=== PATIENT | male | born 1950 | race Caucasian/White ===

== ENCOUNTER → 2021-06-07 15:12 | Outpatient (CLI) | payer MEDICARE, SELFPAY ==
[2021-06-07 14:40] LABS: Chloride 102 mmol/L (98-107); Potassium 4.8 mmoL/L (3.5-5.1); Sodium 132 mmol/L (136-145)
[2021-06-07 14:42] LABS: Alanine Aminotransferase 67 U/L (12-78); Aspartate Amino Transferase 60 U/L (17-59); Blood Urea Nitrogen 16 mg/dl (9-20); Estimated Glomerular Filt Rate 74 ml/min (>60); GFR (African American) 89 ML/MIN (>60)
[2021-06-07 14:43] LABS: Albumin Level 4.6 g/dl (3.5-5.0); Albumin/Globulin Ratio 1.9 (1.1-1.8); Alkaline Phosphatase 58 U/L (38-126); Anion Gap 13.8 mEq/L (5-15); Bilirubin,Total 1.9 mg/dl (0.2-1.3); Carbon Dioxide 21 mmol/L (22.0-30.0); Chol/HDL Ratio 5.8 (1-3.5); Cholesterol 185 mg/dl (140-200); Globulin 2.4 g/dL (1.3-3.2); Glucose 187 mg/dl (74-100); HDL Cholesterol 32 mg/dl (40-60)
[2021-06-07 14:47] LABS: Basophils # 0.1 K/mm3 (0-0.2); Basophils % 0.7 % (0.1-2.0); Eosinophils # 0.3 K/mm3 (0.0-0.4); Eosinophils % 4.7 % (0.1-12.0); Hematocrit 47.1 % (42.0-52.0); Hemoglobin 15.6 g/dL (14.1-18.0); Lymphocytes # 1.1 K/mm3 (0.7-4.5); Lymphocytes % 16.4 % (10-50); Mean Corpuscular HGB Conc 33.1 g/dL (31.8-35.4); Mean Corpuscular Hemoglobin 33.1 pg (27.0-31.2); Mean Corpuscular Volume 99.9 fl (80-94); Monocytes # 0.4 K/mm3 (0.1-1.0); Neutrophils # 4.8 K/mm3 (1.8-7.8); Neutrophils % 72.2 % (37.0-80.0); Platelet Count 245 K/mm3 (142-424); Red Blood Count 4.72 M/mm3 (4.60-6.20); Red Cell Distribution Width 13.6 % (11.5-17.5); White Blood Count 6.6 K/mm3 (4.8-10.8)
[2021-06-07 14:53] LABS: Triglycerides 462 mg/dl (30-150)
[2021-06-07 14:54] LABS: Direct LDL Cholesterol 68.95 mg/dL (100-129)
[2021-06-07 15:24] LABS: Thyroid Stimulating Hormone 1.92 uIU/mL (0.465-4.68)
[2021-06-07 16:45] LABS: Prostate Specific Ag Screen 0.3 ng/ml (0.0-4.0)
== END ==
PROVIDERS: Visit Provider Family Medicine
DX: E66.9 Obesity, unspecified (principal); Z00.00 Encounter for general adult medical examination without abnormal findings; Z12.5 Encounter for screening for malignant neoplasm of prostate; E03.9 Hypothyroidism, unspecified; Z68.31 Body mass index [BMI] 31.0-31.9, adult
CPT/HCPCS: 80053; 80061; 84443; 85025; G0103

== ENCOUNTER 2022-03-26 14:41 | Emergency (ER) | payer MEDICARE, SELFPAY ==
[2022-03-26 15:25] VITALS: BP 112/68; PULSE 75; RESP 18; TEMP 36.7; O2SAT 95; BMI 29.5
--- NOTE | 2022-03-26 15:50 | EXP.UTC ---
Discharge Plan Disposition Patient Disposition: Home, Self-Care Condition: Good Prescriptions Prescriptions: New benzonatate 100 mg capsule 100 mg PO TID PRN (Reason: cough) Qty: 30 0RF azithromycin [Zithromax Z-Ben] 250 mg tablet See Rx Instructions .ROUTE .COMPLEX 5 Days Qty: 6 0RF Rx Instructions: For 250 mg dose pack: take 500 mg today (day 1), then 250 mg for 4 days (days 2-5) No Action atorvastatin 40 mg tablet 40 mg PO DAILY Qty: 90 3RF metoprolol succinate 200 mg tablet extended release 24 hr See Rx Instructions .ROUTE .COMPLEX Qty: 90 3RF Dose Instruction: Take 1 tablet by mouth once daily Rx Instructions: Take 1 tablet by mouth once daily patient needs an appt before anymore refills warfarin 7.5 mg tablet See Rx Instructions .ROUTE .COMPLEX Qty: 90 3RF Dose Instruction: Take 1 tablet by mouth once daily Rx Instructions: Take 1 tablet by mouth once daily clobetasol 0.05 % cream 1 applic TOPICAL BID 14 Days Qty: 60 6RF cyclosporine [Restasis] 0.05 % dropperette OPHTHALMIC Label Comments: INSTILL 1 DROP INTO EACH EYE TWICE DAILY trazodone 100 mg tablet 100 mg PO DAILY Qty: 90 3RF levothyroxine 75 mcg capsule 75 mcg PO DAILY Qty: 90 3RF aspirin 81 mg tablet,delayed release (DR/EC) See Rx Instructions .ROUTE .COMPLEX Qty: 30 0RF Dose Instruction: Take 1 tablet by mouth once daily Rx Instructions: Take 1 tablet by mouth once daily patient needs an appt before anymore refills Referrals Follow up/Referrals: Jc Maxwell MD [Primary Care Provider] - See instructions Activity Restrictions/Add. Instructions Additional Instructions/Restrictions: *Monitor Temp, Over the counter Motrin or Tylenol as directed/as needed Tylenol every 4 hours and Motrin every 6 hours (as long as your family doctor has told you that you can take it) for fever or pain. and straight to ER if unable to lower temp less than 101.0 after medication given *Warm salt water gargles may help to soothe the throat *Throat Lozenges? *Warm fluids like tea with honey may help to soothe the throat? *Sleep elevated *Humidifier/Vaporizer Make sure to notify the War[facility]in Clinic in [place] that you are on antibiotics and have your levels checked to adjust your Warfarin Follow up IMMEDIATELY for new or worsening symptoms or no Noticeable improvement over the next 48-72 hours. 911 for difficulty breathing or swallowing Clinical Impressions Clinical Impression: Bronchitis Instructions Patient Instructions: Acute Bronchitis Discharge ED Provider[place] Tanvi [place] [facility] [facility] [place] General Stated complaint: Bodyaches, persistant cough Mode of Arrival: Ambulatory Source of Information: Patient Limitations: No Limitations Time Seen by Provider: 03/26/22 15:50 Description of Symptoms (Recalled from Triage Doc. by RN): PATIENT C/O PERSISTANT COUGH X 4 DAYS HEENT Symptoms (Recalled from RN notes): No Resp Symptoms (Recalled from RN notes): Yes Skin Symptoms (Recalled from RN notes): No MS Symptoms (Recalled from RN notes): No Functional Status (Recalled from RN notes): WNL History of Present Illness Provider Complaint: Patient states that he has had a cough for about 4 days States that he has been having some nasal drainage and low grade fever States that he isnt coughing anything up States that he has his ribs sore from where he has been coughing and cough worse when he lays down States that he has coughed so much he hurts on his right ribs at times when he coughs hard Related Data Home Medications Medication Instructions Recorded Confirmed cyclosporine 0.05 % eye drops in a ea ophthalmic (eye) 07/25/21 07/25/21 dropperette (Restasis) Previous Rx's Medication Instructions Recorded aspirin 81 mg tablet,delayed See Rx Instructions .Route 05/14/21 release .COMPLEX #30 tabs atorvastatin 40 mg table
[2022-03-26 15:59] LABS: UTC Influenza A Antigen Negative (Negative); UTC Influenza B Antigen Negative (Negative)
[2022-03-26 16:20] VITALS: BP 112/68; PULSE 75; RESP 18; TEMP 36.7; O2SAT 95
== END 2022-03-26 16:23 | disposition home or self-care (01) ==
PROVIDERS: Emergency Provider Nurse Practitioner; PCP Family Medicine
DX: J40 Bronchitis, not specified as acute or chronic (principal)
CPT/HCPCS: 87804; 99212; G0463

== ENCOUNTER → 2022-10-29 11:02 | Outpatient (CLI) | payer MEDICARE, SELFPAY ==
[2022-10-29 11:33] LABS: Basophils % 0.6 % (0.1-2.0); Eosinophils # 0.4 K/mm3 (0.0-0.4); Eosinophils % 5.1 % (0.1-12.0); Hematocrit 47.9 % (42.0-52.0); Hemoglobin 15.2 g/dL (14.1-18.0); Lymphocytes # 1.4 K/mm3 (0.7-4.5); Lymphocytes % 20.1 % (10-50); Mean Corpuscular HGB Conc 31.7 g/dL (31.8-35.4); Mean Corpuscular Hemoglobin 31.3 pg (27.0-31.2); Mean Corpuscular Volume 98.9 fl (80-94); Mean Platelet Volume 8.8 fl (7.4-10.4); Monocytes # 0.4 K/mm3 (0.1-1.0); Monocytes % 5.8 % (1.7-9.3); Neutrophils # 4.9 K/mm3 (1.8-7.8); Neutrophils % 68.3 % (37.0-80.0); Platelet Count 233 K/mm3 (142-424); Red Blood Count 4.85 M/mm3 (4.60-6.20); Red Cell Distribution Width 13.7 % (11.5-17.5); White Blood Count 7.2 K/mm3 (4.8-10.8)
[2022-10-29 12:02] LABS: Chloride 105 mmol/L (98-107); Potassium 4.2 mmoL/L (3.5-5.1); Sodium 137 mmol/L (136-145)
[2022-10-29 12:04] LABS: Blood Urea Nitrogen 18 mg/dl (9-20)
[2022-10-29 12:05] LABS: Alanine Aminotransferase 50 U/L (12-78); Albumin Level 4.3 g/dl (3.5-5.0); Albumin/Globulin Ratio 1.6 (1.1-1.8); Alkaline Phosphatase 79 U/L (38-126); Anion Gap 14.2 mEq/L (5-15); Aspartate Amino Transferase 43 U/L (17-59); Bilirubin,Total 1.6 mg/dl (0.2-1.3); Calcium 9.5 mg/dl (8.4-10.2); Carbon Dioxide 22 mmol/L (22.0-30.0); Estimated Glomerular Filt Rate 73 ml/min (>60); GFR (African American) 89 ML/MIN (>60); Globulin 2.7 g/dL (1.3-3.2); Glucose 241 mg/dl (74-100)
[2022-10-29 12:35] LABS: Thyroid Stimulating Hormone 2.28 uIU/mL (0.465-4.68)
[2022-10-29 14:27] LABS: Prostate Specific Ag Screen 0.3 ng/ml (0.0-4.0)
== END ==
PROVIDERS: PCP Family Medicine; Visit Provider Family Medicine
DX: J40 Bronchitis, not specified as acute or chronic (principal); E78.5 Hyperlipidemia, unspecified; Z95.1 Presence of aortocoronary bypass graft; Z12.5 Encounter for screening for malignant neoplasm of prostate
CPT/HCPCS: 36415; 80053; 84443; 85025; G0103

== ENCOUNTER → 2022-11-05 23:10 | Outpatient (CLI) | payer MEDICARE, SELFPAY ==
[2022-11-05 18:44] LABS: Cholesterol 187 mg/dl (140-200); HDL Cholesterol 31 mg/dl (40-60)
[2022-11-05 18:49] LABS: Triglycerides 455 mg/dl (30-150)
[2022-11-05 18:58] LABS: Direct LDL Cholesterol 63.44 mg/dL (100-129)
[2022-11-05 19:05] LABS: Hemoglobin A1C 9.3 % (4.0-6.0)
== END ==
PROVIDERS: PCP Family Medicine; Visit Provider Family Medicine
DX: E66.9 Obesity, unspecified (principal); E78.5 Hyperlipidemia, unspecified; Z79.899 Other long term (current) drug therapy
CPT/HCPCS: 80061; 83036

== ENCOUNTER → 2023-02-12 23:52 | Outpatient (CLI) | payer MEDICARE, SELFPAY ==
[2023-02-12 19:50] LABS: Hemoglobin A1C 7.8 % (4.0-6.0)
[2023-02-12 20:25] LABS: Chloride 108 mmol/L (98-107); Potassium 4.5 mmoL/L (3.5-5.1); Sodium 138 mmol/L (136-145)
[2023-02-12 20:28] LABS: Alanine Aminotransferase 51 U/L (12-78); Albumin Level 4.6 g/dl (3.5-5.0); Albumin/Globulin Ratio 1.7 (1.1-1.8); Anion Gap 12.5 mEq/L (5-15); Aspartate Amino Transferase 46 U/L (17-59); Bilirubin,Total 1.3 mg/dl (0.2-1.3); Blood Urea Nitrogen 22 mg/dl (9-20); Calcium 9.3 mg/dl (8.4-10.2); Carbon Dioxide 22 mmol/L (22.0-30.0); Chol/HDL Ratio 6.3 (1-3.5); Cholesterol 182 mg/dl (140-200); Estimated Glomerular Filt Rate 59 ml/min (>60); GFR (African American) 72 ML/MIN (>60); Globulin 2.7 g/dL (1.3-3.2); Glucose 152 mg/dl (74-100); HDL Cholesterol 29 mg/dl (40-60); Total Protein,Serum 7.3 g/dl (6.3-8.2); Triglycerides 330 mg/dl (30-150); VLDL Cholesterol 66 mg/dL (0-40)
[2023-02-12 20:39] LABS: Direct LDL Cholesterol 97.39 mg/dL (100-129)
[2023-02-12 21:44] LABS: Alkaline Phosphatase 42 U/L (38-126)
== END ==
PROVIDERS: PCP Family Medicine; Visit Provider Family Medicine
DX: E11.9 Type 2 diabetes mellitus without complications (principal); I10 Essential (primary) hypertension; Z79.84 Long term (current) use of oral hypoglycemic drugs; Z72.0 Tobacco use
CPT/HCPCS: 80053; 80061; 83036

== ENCOUNTER 2023-04-25 22:26 | Emergency (ER) | payer MEDICARE, SELFPAY ==
[2023-04-25 22:35] VITALS: BP 159/95; PULSE 88; RESP 19; TEMP 36.8; O2SAT 96; BMI 29.6
[2023-04-25 22:57] LABS: Basophils # 0.1 K/mm3 (0-0.2); Basophils % 0.8 % (0.1-2.0); Eosinophils # 0.5 K/mm3 (0.0-0.4); Eosinophils % 5.2 % (0.1-12.0); Hematocrit 45.8 % (42.0-52.0); Hemoglobin 15.8 g/dL (14.1-18.0); Lymphocytes # 1.4 K/mm3 (0.7-4.5); Lymphocytes % 15.6 % (10-50); Mean Corpuscular HGB Conc 34.5 g/dL (31.8-35.4); Mean Corpuscular Hemoglobin 34.5 pg (27.0-31.2); Mean Corpuscular Volume 99.9 fl (80-94); Mean Platelet Volume 8.5 fl (7.4-10.4); Monocytes # 0.4 K/mm3 (0.1-1.0); Monocytes % 4.7 % (1.7-9.3); Neutrophils # 6.6 K/mm3 (1.8-7.8); Neutrophils % 73.7 % (37.0-80.0); Platelet Count 255 K/mm3 (142-424); Red Blood Count 4.59 M/mm3 (4.60-6.20); Red Cell Distribution Width 13.4 % (11.5-17.5); White Blood Count 8.9 K/mm3 (4.8-10.8)
[2023-04-25 23:00] VITALS: BP 151/101; PULSE 87; O2SAT 95
[2023-04-25 23:01] LABS: Chloride 107 mmol/L (98-107); Potassium 4.2 mmoL/L (3.5-5.1); Sodium 139 mmol/L (136-145)
[2023-04-25 23:04] LABS: Alanine Aminotransferase 56 U/L (12-78); Albumin Level 4.4 g/dl (3.5-5.0); Albumin/Globulin Ratio 1.3 (1.1-1.8); Alkaline Phosphatase 44 U/L (38-126); Anion Gap 15.2 mEq/L (5-15); Aspartate Amino Transferase 50 U/L (17-59); Bilirubin,Total 0.8 mg/dl (0.2-1.3); Blood Urea Nitrogen 21 mg/dl (9-20); Carbon Dioxide 21 mmol/L (22.0-30.0); Creatinine Clearance Estimated 69 mL/min (50-200); Estimated Glomerular Filt Rate 59 ml/min (>60); GFR (African American) 72 ML/MIN (>60); Globulin 3.3 g/dL (1.3-3.2); Total Protein,Serum 7.7 g/dl (6.3-8.2)
[2023-04-25 23:05] LABS: Calcium 9.4 mg/dl (8.4-10.2); Glucose 163 mg/dl (74-100)
[2023-04-25 23:06] LABS: INR 2.19 (0.9-1.1); Prothrombin Time 22.5 seconds (10.1-12.5)
--- NOTE | 2023-04-25 23:06 | ED_ITS ---
Discharge Plan Disposition Patient Disposition: Home, Self-Care Prescriptions Prescriptions: No Action atorvastatin 40 mg tablet See Rx Instructions .ROUTE .COMPLEX Qty: 90 3RF Dose Instruction: Take 1 tablet by mouth once daily Rx Instructions: Take 1 tablet by mouth once daily warfarin 7.5 mg tablet See Rx Instructions .ROUTE .COMPLEX Qty: 90 10RF Dose Instruction: Take 1 tablet by mouth once daily Rx Instructions: Take 1 tablet by mouth once daily metoprolol succinate 200 mg tablet extended release 24 hr See Rx Instructions .ROUTE .COMPLEX Qty: 90 3RF Dose Instruction: Take 1 tablet by mouth once daily Rx Instructions: Take 1 tablet by mouth once daily levothyroxine 75 mcg tablet See Rx Instructions .ROUTE .COMPLEX Qty: 90 3RF Dose Instruction: Take 1 tablet by mouth once daily Rx Instructions: Take 1 tablet by mouth once daily fenofibrate 160 mg tablet 160 mg PO DAILY Qty: 90 3RF aspirin 81 mg tablet,delayed release (DR/EC) See Rx Instructions .ROUTE .COMPLEX Qty: 30 0RF Dose Instruction: Take 1 tablet by mouth once daily Rx Instructions: Take 1 tablet by mouth once daily patient needs an appt before anymore refills metformin 500 mg tablet 500 mg PO BID Qty: 180 3RF (DME) blood-glucose meter [Blood Glucose Monitoring] Kit See Rx Instructions .Route Qty: 1 0RF Rx Instructions: As directed (DME) OneTouch Verio test strips Strip See Rx Instructions .Route Qty: 50 0RF Rx Instructions: As directed Referrals Follow up/Referrals: Jc Maxwell MD [Primary Care Provider] - See instructions Activity Restrictions/Add. Instructions Additional Instructions/Restrictions: Please follow-up with your primary care provider. Please return to the emergency department if you develop any new or worsening symptoms or become concerned for your health. Clinical Impressions Clinical Impression: Food bolus obstruction of intestine Discharge ED Provider: Patrick Tay General Adult HPI General Chief complaint: Recheck/Abnormal Lab/Rx Stated complaint: fb in throat, possibly steak Time Seen by Provider: 04/25/23 23:06 Mode of Arrival: Family Vehicle Source of Information: Patient Limitations: No Limitations Description of Symptoms (Recalled from ER Triage Doc. by RN): 72 YO MALE WAS EATING STEAK AND BAKED POTATO,DRINKING A BEER WHEN HE STATED HE 'FELT HIS STEAK GET STUCK'. THIS OCCURRED APPROX 1930. ACCORDING TO HIS , HE HAS BEEN SPITTING AND COUGHING UP HIS SALIVA SINCE THEN. NO RESP ISSUES. History of Present Illness HPI narrative: 72-year-old male presents with food bolus impaction. He was eating steak at a restaurant when he felt like it stuck. He has been unable to tolerate his secretions since that time and has had to spit up his saliva. He reports no shortness of breath. He reports that he has had a couple of other things get stuck recently, but reports that they all passed on their own prior to this. Reports no other symptoms at this time. Specifically denies any chest pain Related Data Previous Rx's Medication Instructions Recorded aspirin 81 mg tablet,delayed See Rx Instructions .Route 05/14/21 release .COMPLEX #30 tabs atorvastatin 40 mg tablet See Rx Instructions .Route 11/05/22 .COMPLEX #90 tabs levothyroxine 75 mcg tablet See Rx Instructions .Route 11/05/22 .COMPLEX #90 tabs metoprolol succinate 200 mg See Rx Instructions .Route 11/05/22 tablet,extended release 24 hr .COMPLEX #90 tabs warfarin 7.5 mg tablet See Rx Instructions .Route 11/05/22 .COMPLEX #90 tabs fenofibrate 160 mg tablet 160 mg PO DAILY #90 tabs 11/06/22 metformin 500 mg tablet 500 mg PO BID #180 tabs 11/06/22 blood-glucose meter (Blood Glucose #1 ea 11/07/22 Monitoring kit) blood sugar diagnostic (OneTouch #50 ea 11/20/22 Verio test strips) Allergies Allergy/AdvReac Type Severity Reaction Status Date / Time No Known Allergies Allergy Verified 04/08/23 13:23 [facility] Disclaimer: The information contained in this section may have been updated after the patient was seen, as this information can be updated by other users. Medical History History of heart attack Surgical History History of hernia repair History of open heart surgery Social History Smoking Status: Unknown if ever smoked alcohol intake: current substance use type: denies use current occupational status: retired Travel in the last 8 weeks: None household members: spouse housing: house ROS Obtained: Yes All systems reviewed & no additional complaints except as documented Physical Exam General General appearance: alert and in no apparent distress Head Head exam: atraumatic and normocephalic Eye Eye exam: Present normal appearance, PERRL and EOMI ENT ENT exam: Present normal oropharynx and normal external ear exam Neck Neck exam: Present normal inspection and full ROM Chest Chest inspection: Present normal inspection and symmetric chest wall rise; Absent tenderness Respiratory Respiratory exam: Present normal lung sounds bilaterally; Absent respiratory distress Cardiovascular Cardiovascular exam: Present regular rate and normal rhythm Abdominal Exam Abdominal exam: Present soft; Absent distention, tenderness or guarding Extremities Exam Extremities exam: Present normal inspection; Absent edema or joint swelling Back Exam Back exam: Present normal inspection; Absent tenderness Neurological Exam Neurological exam: Present alert and oriented X3; Absent motor sensory deficit Psychiatric Psychiatric exam: Present normal affect and normal mood Skin Skin exam: Present warm, dry and normal color Lymphatic Lymphatic Findings: no adenopathy Medical Decision Making Medical Records Medical records reviewed: Yes I reviewed the patient's medical records. Alex Inquiry Pt receiving controlled substance: No Alex was queried for this patient: No Vital Signs: 04/25/23 22:35 04/25/23 23:00 04/26/23 01:22 Temperature 98.3 F 98.1 F Temperature Source Oral Oral Pulse Rate 87 89 Pulse Rate [Right Brachial] 88 Respiratory Rate 19 18 Blood Pressure 151/101 H 160/90 H Blood Pressure [Right Arm] 159/95 H Blood Pressure Mean [Right Arm] 116 Blood Pressure Source Automatic Cuff Blood Pressure Source [Right Arm] Automatic Cuff Blood Pressure Position Sitting Blood Pressure Position [Right Arm] Sitting 02 Sat by Pulse Oximetry 96 95 Oxygen Delivery Method Room Air Room Air Lab Data Lab results reviewed: Yes I reviewed the patient's lab results. Lab Results 04/25/23 22:49: WBC 8.9, RBC 4.59 L, Hgb 15.8, Hct 45.8, MCV 99.9 H, MCH 34.5 H, MCHC 34.5, RDW 13.4, Plt Count 255, MPV 8.5, Neut % (Auto) 73.7, Lymph % (Auto) 15.6, [place] % (Auto) 4.7, Eos % (Auto) 5.2, Baso % (Auto) 0.8, Neut # (Auto) 6.6, Lymph # (Auto) 1.4, [place] # (Auto) 0.4, Eos # (Auto) 0.5 H, Baso # (Auto) 0.1, PT 22.5 H, INR 2.19 H, Sodium 139, Potassium 4.2, Chloride 107, Carbon Dioxide 21 L , Anion Gap 15.2 H, BUN 21 H, Creatinine 1.20, Estimated Creat Clear 69, Estimated GFR 59, Est GFR ( Amer) 72, Glucose 163 H, Calcium 9.4, Total Bilirubin 0.8, AST 50, ALT 56, Alkaline Phosphatase 44, Total Protein 7.7, Albumin 4.4, Globulin 3.3 H, Albumin/Globulin Ratio 1.3 04/25/23 22:49 04/25/23 22:49 Orders (Tests/Meds): ED MEDICATIONS Discontinued Medications Generic Name Dose Route Start Last Admin Trade Name Freq PRN Reason Stop Dose Admin Glucagon 1 mg 04/25/23 23:07 04/25/23 23:23 Glucagon 1 Mg/Ml Vial IV 04/25/23 23:08 1 mg ONCE ONE Administration Glucagon 1 mg 04/26/23 00:38 04/26/23 00:53 Glucagon 1 Mg/Ml Vial IV 04/26/23 00:39 1 mg ONCE ONE Administration Nitroglycerin 0.4 mg 04/26/23 00:38 04/26/23 00:54 Nitroglycerin 0.4mg Sl Tablet SL 04/26/23 00:39 0.4 mg ONCE ONE Administration Sodium Chloride 10 ml 04/25/23 23:14 Sodium Chloride 0.9% 10ml Flush Syringe IV 05/25/23 23:13 NEEDED PRN Maintain IV Site ORDERS Category Date Time Status Complete Blood Count Auto Diff Stat Lab 04/25/23 22:49 Completed Comprehensive Metabolic Panel Stat Lab 04/25/23 22:49 Completed INR [Prothrombin Time INR] Stat Lab 04/25/23 22:49 Completed Medical Decision Narrative: 72-year-old male presents with esophageal food bolus impaction. Differential diagnosis includes but limited to esophageal impaction, airway aspiration, eso phageal perforation. Exam benign, though patient unable to swallow any secretions. Patient was given dose of 1 mg IV glucagon without resolution of bolus. Patient was given a single dose of sublingual nitroglycerin and a second dose of glucagon with resultant clearing of the bolus. Patient was monitored for short period of time and then was discharged in stable condition. Return precautions given. Procedures Risk/Benefits of Procedure(s) Were Explained: Yes Critical Care Critical Care Time Critical Care Time: No
[2023-04-25] MEDS: GLUCAGON 1 MG/ML VIAL IV (23:23)
[2023-04-26] MEDS: GLUCAGON 1 MG/ML VIAL IV (00:53)
[2023-04-26] MEDS: NITROGLYCERIN 0.4MG SL TABLET 0.400000000000000022 MG SL (00:54)
--- NOTE | 2023-04-26 01:00 | PC.NURSE ---
Gave patient warm Pepsi after 4 minutes post administration of Nitroglycerine. First drink did not go down per patient. Patient attempted second drink and successfully feels that the food bolus passed down at this time.
[2023-04-26 01:22] VITALS: BP 160/90; PULSE 89; RESP 18; TEMP 36.7; O2SAT 93
== END 2023-04-26 01:26 | disposition home or self-care (01) ==
PROVIDERS: Student in an Organized Health Care Education/Training Program; Emergency Provider Emergency Medicine; PCP Family Medicine
DX: I25.2 Old myocardial infarction (principal); T18.128A Food in esophagus causing other injury, initial encounter
CPT/HCPCS: 80053; 85025; 85610; 96374; 96376; 99284; J1610

== ENCOUNTER 2023-05-01 11:45 | Outpatient (CLI) | payer MEDICARE, SELFPAY ==
[2023-05-01 12:44] LABS: Chloride 107 mmol/L (98-107)
[2023-05-01 12:45] LABS: Potassium 4.6 mmoL/L (3.5-5.1); Sodium 138 mmol/L (136-145)
[2023-05-01 12:47] LABS: Alanine Aminotransferase 54 U/L (12-78); Anion Gap 11.6 mEq/L (5-15); Aspartate Amino Transferase 52 U/L (17-59); Blood Urea Nitrogen 17 mg/dl (9-20); Carbon Dioxide 24 mmol/L (22.0-30.0); Estimated Glomerular Filt Rate 59 ml/min (>60); GFR (African American) 72 ML/MIN (>60)
[2023-05-01 12:48] LABS: Albumin Level 4.2 g/dl (3.5-5.0); Albumin/Globulin Ratio 1.6 (1.1-1.8); Alkaline Phosphatase 38 U/L (38-126); Bilirubin,Total 0.9 mg/dl (0.2-1.3); Calcium 9.4 mg/dl (8.4-10.2); Chol/HDL Ratio 6.8 (1-3.5); Cholesterol 176 mg/dl (140-200); Globulin 2.7 g/dL (1.3-3.2); Glucose 171 mg/dl (74-100); HDL Cholesterol 26 mg/dl (40-60); Total Protein,Serum 6.9 g/dl (6.3-8.2); Triglycerides 360 mg/dl (30-150); VLDL Cholesterol 72 mg/dL (0-40)
[2023-05-01 12:59] LABS: Direct LDL Cholesterol 83.06 mg/dL (100-129)
== END 2023-05-01 23:59 ==
LOC: LAB 11:47
PROVIDERS: PCP Family Medicine; Visit Provider Family Medicine
DX: E78.5 Hyperlipidemia, unspecified (principal); E11.9 Type 2 diabetes mellitus without complications; E78.6 Lipoprotein deficiency
CPT/HCPCS: 36415; 80053; 80061

== ENCOUNTER 2023-07-17 08:56 | Outpatient (CLI) | payer MEDICARE, SELFPAY ==
--- NOTE | 2023-07-17 08:57 | CA_ITS ---
APPROVED REPORT EXAM: Comprehensive 2D, Doppler, and color-flow Echocardiogram Production Planner Scheduler: Brittani Jones RDCS Ht: 5 ft 8 in Wt: 169lbs BSA: 1.90 BP: 147/75 mmHg Indications: [facility] MV, HTN,CABG,DM M-Mode Dimensions RVDd 2.31 cm (0.9-2.6) LA Diam 4.16 cm (1.9-4.0) LVDd 6.04 cm (3.5-5.7) LVDs 5.38 cm (3.5-5.7) IVSd 0.76 cm (0.6-1.1) PWd 0.84 cm (0.6-1.1) EF (Teich) 23.40% FS 10.90% EDV (Teich) 182.80 mL ESV (Teich) 140.10 mL LV Diastology E Decel Time 190 (160-240 msec) E/A Ratio 0.8 Aortic Valve NINI Index 0.70 cm2/m2 AoV Peak Umesh. 145.0 (50-130 cm/s) AO Peak GR. 8.40 mmHg AO Mean GR. 4.20 (<5 mmHg) AO VTI 26.1 (18-25 cm) NINI (VTI) 1.36 (2.5-4.5 cm2) Mitral Valve MV E Max Umesh. 118.0 (40-130 cm/s) MV A Velocity 151.0 (40-130 cm/s) E/A Ratio 0.78 MV PHT 56.0 ms Tricuspid Valve TR P. Velocity 218.00 cm/s RAP Estimate 10.00 mmHg RVSP 28.90 mmHg Left Ventricle The left ventricle is normal size. The left ventricular systolic function is low normal. There is increased LV wall thickness. Diastolic function is indeterminate. There is normal LV segmental wall motion. LVEF is 50%. Right Ventricle The right ventricle is normal size. The right ventricular systolic function is normal. Atria The left atrium is mildly dilated. The right atrium is mildly dilated. There is no Doppler evidence of interatrial shunt. Aortic Valve The aortic valve is mildly thickened. Mild aortic regurgitation. There is no aortic valvular stenosis. 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 The prosthesis is well-seated. No evidence of mitral valve stenosis. Mean MV gradient 5 mmHg (HR 72 bpm). MVA by PHT is 2.8 cm???. Peak E velocity 115 cm/s. Trace mitral regurgitation, which likely represents physiologic washing jets. Tricuspid Valve The tricuspid valve leaflets are thin and pliable. Mild tricuspid regurgitation. RVSP is 20-25 mmHg. Pulmonic Valve The pulmonary valve is normal in structure. Trace pulmonic regurgitation. Great Vessels The aortic root is normal in size. The ascending aorta is normal in size. IVC is normal in size and collapses >50% with inspiration. Pericardium There is no pericardial effusion. Other Information Study Quality: Fair Conclusion Low-normal LV systolic function (LVEF 50%). Mild biatrial dilation. Mild AI, mild TR. s/p [facility] MVR. Acceptable MV parameters are noted (no prior for comparison). Electronically signed by : Angela Mccoy MD 07/19/2023 22:49:50
== END 2023-07-17 23:59 ==
LOC: RT 08:57
PROVIDERS: PCP Family Medicine; Visit Provider Nurse Practitioner
DX: Z95.2 Presence of prosthetic heart valve (principal); K04.7 Periapical abscess without sinus
CPT/HCPCS: 93306

== ENCOUNTER 2023-07-23 11:55 | Outpatient (CLI) | payer MEDICARE, SELFPAY | END 2023-07-23 13:55 | LOC: ACC 11:56 | PROVIDERS: PCP Family Medicine; Visit Provider Nurse Practitioner | DX: Z79.01 Long term (current) use of anticoagulants (principal); Z51.81 Encounter for therapeutic drug level monitoring | CPT/HCPCS: 85610; 99211; G0463 ==

== ENCOUNTER 2023-08-04 13:53 | Outpatient (CLI) | payer MEDICARE, SELFPAY ==
[2023-08-04 14:13] LABS: Basophils % 0.7 % (0.1-2.0); Eosinophils # 0.3 K/mm3 (0.0-0.4); Eosinophils % 5.3 % (0.1-12.0); Hematocrit 44.2 % (42.0-52.0); Hemoglobin 14.6 g/dL (14.1-18.0); Lymphocytes # 1.1 K/mm3 (0.7-4.5); Lymphocytes % 17.1 % (10-50); Mean Corpuscular Hemoglobin 33.8 pg (27.0-31.2); Mean Corpuscular Volume 102.4 fl (80-94); Mean Platelet Volume 8.6 fl (7.4-10.4); Monocytes # 0.3 K/mm3 (0.1-1.0); Monocytes % 4.9 % (1.7-9.3); Neutrophils # 4.5 K/mm3 (1.8-7.8); Neutrophils % 71.9 % (37.0-80.0); Platelet Count 249 K/mm3 (142-424); Red Blood Count 4.31 M/mm3 (4.60-6.20); Red Cell Distribution Width 14.1 % (11.5-17.5); White Blood Count 6.2 K/mm3 (4.8-10.8)
[2023-08-04 15:05] LABS: Chloride 106 mmol/L (98-107)
[2023-08-04 15:06] LABS: Potassium 4.3 mmoL/L (3.5-5.1); Sodium 137 mmol/L (136-145)
[2023-08-04 15:08] LABS: Alanine Aminotransferase 47 U/L (12-78); Aspartate Amino Transferase 45 U/L (17-59); Blood Urea Nitrogen 14 mg/dl (9-20); Estimated Glomerular Filt Rate 54 ml/min (>60); GFR (African American) 65 ML/MIN (>60)
[2023-08-04 15:09] LABS: Albumin Level 3.9 g/dl (3.5-5.0); Albumin/Globulin Ratio 1.6 (1.1-1.8); Alkaline Phosphatase 46 U/L (38-126); Anion Gap 12.3 mEq/L (5-15); Bilirubin,Total 0.9 mg/dl (0.2-1.3); Calcium 9.7 mg/dl (8.4-10.2); Carbon Dioxide 23 mmol/L (22.0-30.0); Globulin 2.4 g/dL (1.3-3.2); Glucose 127 mg/dl (74-100); Total Protein,Serum 6.3 g/dl (6.3-8.2)
[2023-08-04 16:33] LABS: Prostate Specific Ag Screen 0.4 ng/ml (0.0-4.0)
[2023-08-04 16:46] LABS: Hemoglobin A1C 7.1 % (4.0-6.0)
== END 2023-08-04 23:59 | disposition home or self-care (01) ==
LOC: LAB 13:54
PROVIDERS: PCP Family Medicine; Visit Provider Family Medicine
DX: I10 Essential (primary) hypertension (principal); E03.9 Hypothyroidism, unspecified; E78.5 Hyperlipidemia, unspecified; E11.9 Type 2 diabetes mellitus without complications; Z12.5 Encounter for screening for malignant neoplasm of prostate; Z79.84 Long term (current) use of oral hypoglycemic drugs; Z79.85 Long-term (current) use of injectable non-insulin antidiabetic drugs
CPT/HCPCS: 80053; 83036; 85025; G0103

== ENCOUNTER 2023-09-18 12:32 | Outpatient (CLI) | payer MEDICARE, SELFPAY ==
[2023-09-18 14:14] LABS: PHA INR Fingerstick 3.8 (0.9-1.1)
== END 2023-09-18 14:21 ==
LOC: ACC 12:33
PROVIDERS: PCP Family Medicine; Visit Provider Nurse Practitioner
DX: Z79.01 Long term (current) use of anticoagulants (principal); Z95.2 Presence of prosthetic heart valve
CPT/HCPCS: 85610; 99211; G0463

== ENCOUNTER 2023-10-19 11:29 | Outpatient (CLI) | payer MEDICARE, SELFPAY ==
[2023-10-19 15:17] LABS: PHA INR Fingerstick 2.1 (0.9-1.1)
== END 2023-10-19 15:24 ==
LOC: ACC 11:30
PROVIDERS: PCP Family Medicine; Visit Provider Nurse Practitioner
DX: Z79.01 Long term (current) use of anticoagulants (principal); Z95.2 Presence of prosthetic heart valve
CPT/HCPCS: 85610; 99211; G0463

== ENCOUNTER 2023-12-01 11:14 | Outpatient (CLI) | payer MEDICARE, SELFPAY ==
[2023-12-01 11:31] LABS: PHA INR Fingerstick 3.2 (0.9-1.1)
== END 2023-12-01 11:34 ==
LOC: ACC 11:15
PROVIDERS: PCP Family Medicine; Visit Provider Nurse Practitioner
DX: Z79.01 Long term (current) use of anticoagulants (principal); Z95.2 Presence of prosthetic heart valve
CPT/HCPCS: 85610; 99211; G0463

== ENCOUNTER 2024-01-14 11:34 | Outpatient (CLI) | payer MEDICARE, SELFPAY ==
[2024-01-14 13:20] LABS: PHA INR Fingerstick 3.8 (0.9-1.1)
== END 2024-01-14 13:26 ==
LOC: ACC 11:35
PROVIDERS: PCP Family Medicine; Visit Provider Nurse Practitioner
DX: Z79.01 Long term (current) use of anticoagulants (principal); Z95.2 Presence of prosthetic heart valve
CPT/HCPCS: 85610; 99211; G0463

== ENCOUNTER 2024-02-08 13:09 | Emergency (ER) | payer MEDICARE, SELFPAY ==
[2024-02-08 13:10] VITALS: BP 174/92; PULSE 80; RESP 18; TEMP 36.6; O2SAT 97; BMI 28.1
--- NOTE | 2024-02-08 13:10 | PC.NURSE ---
DR REDMAN AT BEDSIDE
--- NOTE | 2024-02-08 13:27 | CT_ITS ---
FINAL REPORT CLINICAL HISTORY: vision loss in left eye. Stroke alert COMPARISON: None FINDINGS: Axial images of the head were obtained without contrast. Coronal reformatted images were also obtained. This study was performed with techniques to keep radiation doses as low as reasonably achievable (ALARA). Individualized dose reduction techniques using automated exposure control or adjustment of mA and/or kV according to the patient''s size were employed. There is generalized age-appropriate atrophy. Periventricular low-attenuation areas are seen consistent with mild chronic ischemic changes. There is no evidence of intracranial hemorrhage or mass. There is no evidence of acute infarct. There is no evidence of shift of the midline structures. No skull abnormality is seen on the bone window images. There is mild mucoperiosteal thickening of the right maxillary sinus. IMPRESSION: Atrophy and mild periventricular chronic ischemic changes. No acute intracranial abnormality identified. Reviewed, Interpreted and Dictated by Uriel Pringle III, MD Transcribed by Concha Tellez Authenticated and [facility]
--- NOTE | 2024-02-08 13:27 | CT_ITS ---
FINAL REPORT TECHNIQUE: Thin section axial CT with IV contrast supplemented with multiplanar reconstruction under CT angiogram protocol. This study was performed with techniques to keep radiation doses as low as reasonably achievable (ALARA). Individualized dose reduction techniques using automated exposure control or adjustment of mA and/or kV according to the patient''s size were employed. NASCET criteria was utilized during interpretation. CLINICAL HISTORY: possible stroke, acute left monocular vision loss COMPARISON: None FINDINGS: Aortic arch: Arch shows no significant narrowing. Great vessel origins are widely patent. Right carotid: Mild plaque at the carotid bifurcation without evidence of significant internal carotid stenosis. Left carotid: Mild plaque of the carotid bifurcation without evidence of significant internal carotid stenosis. Vertebral: Vertebral arteries are codominant. No significant stenosis is present. IMPRESSION: Mild plaque at the bilateral carotid bifurcations without evidence of significant internal carotid stenosis. Reviewed, Interpreted and Dictated by Uriel Pringle III, MD Transcribed by Concha Tellez Authenticated and [facility]
--- NOTE | 2024-02-08 13:27 | CT_ITS ---
FINAL REPORT TECHNIQUE: Thin section axial CT with IV contrast supplemented with multiplanar reconstruction under CT angiogram protocol. 3-D reconstructions were performed. This study was performed with techniques to keep radiation doses as low as reasonably achievable (ALARA). Individualized dose reduction techniques using automated exposure control or adjustment of mA and/or kV according to the patient''s size were employed. CLINICAL HISTORY: possible stroke, acute L monocular vision loss COMPARISON: None FINDINGS: The distal vertebral, basilar and distal internal carotid arteries have an unremarkable appearance. No aneurysm is seen. Major intracranial vessels are patent without significant stenosis. IMPRESSION: No evidence of aneurysm or significant stenosis. Reviewed, Interpreted and Dictated by Uriel Pringle III, MD Transcribed by Concha Tellez Authenticated and [facility]
--- NOTE | 2024-02-08 13:27 | PC.NURSE ---
PT TO CT
--- NOTE | 2024-02-08 13:30 | ED_ITS ---
Discharge Plan Disposition Patient Disposition: Xfer Short-Term Hosp Chief Complaint: Neuro Symptoms/Deficit Prescriptions Prescriptions: No Action Mounjaro 7.5 mg/0.5 mL pen injector 7.5 mg SQ WEEKLY Qty: 2 10RF aspirin 81 mg tablet,delayed release (DR/EC) See Rx Instructions .ROUTE .COMPLEX Qty: 30 0RF Dose Instruction: Take 1 tablet by mouth once daily Rx Instructions: Take 1 tablet by mouth once daily patient needs an appt before anymore refills (DME) blood-glucose meter [Blood Glucose Monitoring] Kit See Rx Instructions .Route Qty: 1 0RF Rx Instructions: As directed (DME) OneTouch Verio test strips Strip See Rx Instructions .Route Qty: 50 0RF Rx Instructions: As directed atorvastatin 40 mg tablet See Rx Instructions .ROUTE .COMPLEX Qty: 90 3RF Dose Instruction: Take 1 tablet by mouth once daily Rx Instructions: Take 1 tablet by mouth once daily metoprolol succinate 200 mg tablet extended release 24 hr See Rx Instructions .ROUTE .COMPLEX Qty: 90 3RF Dose Instruction: Take 1 tablet by mouth once daily Rx Instructions: Take 1 tablet by mouth once daily metformin 500 mg tablet 500 mg PO BID Qty: 180 3RF fenofibrate 160 mg tablet See Rx Instructions .ROUTE .COMPLEX Qty: 90 0RF Dose Instruction: Take 1 tablet by mouth once daily Rx Instructions: Take 1 tablet by mouth once daily polyethylene glycol 3350 [Miralax] 17 gram/dose powder 17 g PO BID Qty: 1020 0RF hydrocortisone-pramoxine 1-1 % cream 1 applic LA QID PRN (Reason: hemorrhoids) Qty: 30 12RF levothyroxine 75 mcg tablet See Rx Instructions .ROUTE .COMPLEX Qty: 90 3RF Dose Instruction: Take 1 tablet by mouth once daily Rx Instructions: Take 1 tablet by mouth once daily warfarin 7.5 mg tablet See Rx Instructions .ROUTE .COMPLEX Qty: 90 10RF Dose Instruction: Take 1 tablet by mouth once daily Rx Instructions: Take 1 tablet by mouth once daily Referrals Follow up/Referrals: Jc Maxwell MD [Primary Care Provider] - See instructions Clinical Impressions Clinical Impression: Monocular vision loss, Afferent pupillary defect Print Language Print Language: Afghan Discharge ED Provider: Dayne Mendez General Adult HPI General Chief complaint: Neuro Symptoms/Deficit Stated complaint: lost sight L eye Time Seen by Provider: 02/08/24 13:14 History of Present Illness HPI narrative: Patient is a 73-year-old male with past medical history of [id number] diabetes, hypertension, hyperlipidemia who presents emergency department for evaluation of vision loss. History is obtained by patient at bedside and . Approximately 1 hour prior to arrival patient had transient tunnel vision on the left followed by complete vision loss. Bright lights register but he cannot make out shapes or colors. He has no speech changes, no gait difficulty, no acute weakness, no other acute complaints at this time. No trauma. He wears glasses at baseline and his right vision is reportedly normal and unchanged from his baseline. Related Data Previous Rx's ?Medication ?Instructions ?Recorded aspirin 81 mg tablet,delayed See Rx Instructions .Route 05/14/21 release .COMPLEX #30 tabs blood-glucose meter (Blood Glucose #1 ea 11/07/22 Monitoring kit) blood sugar diagnostic (OneTouch #50 ea 11/20/22 Verio test strips) tirzepatide 7.5 mg/0.5 mL 7.5 mg (0.5 mL) SQ WEEKLY #2 mL 08/06/23 subcutaneous pen injector (Mounjaro) atorvastatin 40 mg tablet See Rx Instructions .Route 10/22/23 .COMPLEX #90 tabs metformin 500 mg tablet 500 mg PO BID #180 tabs 10/22/23 metoprolol succinate 200 mg See Rx Instructions .Route 10/22/23 tablet,extended release 24 hr .COMPLEX #90 tabs fenofibrate 160 mg tablet See Rx Instructions .Route 11/23/23 .COMPLEX #90 tabs hydrocortisone-pramoxine 1 %-1 % 1 applic LA QID PRN hemorrhoids 12/07/23 rectal cream #30 grams polyethylene glycol 3350 17 17 g PO BID #1,020 grams 12/07/23 gram/dose oral powder (Miralax) levothyroxine 75 mcg tablet See Rx Instructions .Route 12/14/23 .COMPLEX #90 tabs warfarin 7.5 mg tablet See Rx Instructions .Route 01/21/24 .COMPLEX #90 tabs Allergies Allergy/AdvReac Type Severity Reaction Status Date / Time No Known Allergies Allergy Verified 11/26/23 13:54 [facility] Disclaimer: The information contained in this section may have been updated after the patient was seen, as this information can be updated by other users. Medical History History of heart attack Surgical History History of hernia repair History of open heart surgery Social History Smoking Status: Never smoker alcohol intake: current alcohol intake frequency: a few times a month substance use type: denies use current occupational status: retired Travel in the last 8 weeks: None household members: spouse housing: house Other Medical History Have you received the Pneumonia Vaccine: No ROS Obtained: Yes Systems reviewed as appropriate & no additional complaints except as documented Physical Exam General General appearance: alert and in no apparent distress Head Head exam: atraumatic and normocephalic Eye Eye exam: Present EOMI; Absent PERRL (Afferent pupillary defect left) ENT ENT exam: Present mucous membranes moist Neck Neck exam: Present normal inspection Chest Chest inspection: Present normal inspection and symmetric chest wall rise Respiratory Respiratory exam: Present normal lung sounds bilaterally; Absent respiratory distress Cardiovascular Cardiovascular exam: Present regular rate and normal rhythm Abdominal Exam Abdominal exam: Present soft; Absent tenderness Extremities Exam Extremities exam: Present normal inspection Neurological Exam Neurological exam: Present alert, oriented X3 and normal gait; Absent CN II-XII intact (2 through 12 grossly intact with the exception of left vision which only registers light) or motor sensory deficit Psychiatric Psychiatric exam: Present normal affect Skin Skin exam: Present warm and dry Medical Decision Making Medical Records Screening: Per USPSTF and CDC recommendations, given the prevalence of disease in our region, it is our hospital?s policy to screen for HIV and viral Hepatitis for all patients aged 18 and over and those with ongoing risk factors. Alex Inquiry Pt receiving controlled substance: No Vital Signs: 02/08/24 13:10 Temperature 97.9 F Temperature Source Oral Pulse Rate [Radial] 80 Respiratory Rate 18 Blood Pressure [Right Arm] 174/92 H Blood Pressure Mean [Right Arm] 119 Blood Pressure Source [Right Arm] Automatic Cuff Blood Pressure Position [Right Arm] Sitting 02 Sat by Pulse Oximetry 97 Oxygen Delivery Method Room Air Lab Data Lab Results 02/08/24 13:20: WBC 7.2, RBC 4.41 L, Hgb 14.8, Hct 43.2, MCV 97.9 H, MCH 33.6 H, MCHC 34.4, RDW 14.0, Plt Count 254, MPV 8.6, Neut % (Auto) 71.5, Lymph % (Auto) 16.5, [place] % (Auto) 6.1, Eos % (Auto) 4.8, Baso % (Auto) 1.0, Neut # (Auto) 5.1, Lymph # (Auto) 1.2, [place] # (Auto) 0.4, Eos # (Auto) 0.4, Baso # (Auto) 0.1, PT 42.5 H, INR 4.39 H, APTT 45.3 H, Sodium 139, Potassium 4.5, Chloride 106, Carbon Dioxide 24, Anion Gap 13.5, BUN 18, Creatinine 1.20, Estimated Creat Clear 64, Estimated GFR 59, Est GFR ( Amer) 72, Glucose 134 H, Calcium 9.7, Total Bilirubin 0.9, AST 48, ALT 58, Alkaline Phosphatase 34 L, Troponin I < 0.01, Total Protein 7.2, Albumin 4.5, Globulin 2.7, Albumin/Globulin Ratio 1.7, T riglycerides 352 H, Cholesterol 165, LDL Cholesterol Direct 92.23 L, VLDL Cholesterol 70 H, HDL Cholesterol 33 L, Cholesterol/HDL Ratio 5.0 H, Plasma/Serum Alcohol < 10 02/08/24 13:20 02/08/24 13:20 Orders (Tests/Meds): ED MEDICATIONS Generic Name Dose Route Start Last Admin Trade Name Freq PRN Reason Stop Dose Admin Sodium Chloride 10 ml 02/08/24 13:26 Sodium Chloride 0.9% 10ml Flush Syringe IV 03/09/24 13:25 NEEDED PRN Maintain IV Site Discontinued Medications Generic Name Dose Route Start Last Admin Trade Name Freq PRN Reason Stop Dose Admin Iopamidol 80 ml 02/08/24 13:33 02/08/24 13:34 Iopamidol-370 (76%);100ml Bottle IV 02/08/24 13:34 80 ml ONCE ONE Administration Sodium Chloride 10 ml 02/08/24 13:33 02/08/24 13:34 Sodium Chloride 0.9% 10ml Syr (Rad Only) IV 02/08/24 13:34 10 ml ONCE ONE Administration Sodium Chloride 50 ml 02/08/24 13:33 02/08/24 13:34 0.9 % Sodium Chloride 50 Ml Vial IV 02/08/24 13:34 50 ml ONCE ONE Administration ORDERS Category Date Time Status CT angio head Stat Cat Scan 02/08/24 13:[address] angio neck Stat Cat Scan 02/08/24 13:[address] head/brain wo con Stat Cat Scan 02/08/24 13:27 Completed Activated Partial Thrombo Time Stat Lab 02/08/24 13:20 Completed Complete Blood Count Auto Diff Stat Lab 02/08/24 13:20 Completed Comprehensive Metabolic Panel Stat Lab 02/08/24 13:20 Completed Drug Screen,Urine Stat Lab 02/08/24 13:27 Ordered Ethyl Alcohol Stat Lab 02/08/24 13:20 Completed HIV (1&2) Antibody Rapid Stat Lab 02/08/24 13:20 Received Hep C Ab with Reflex to RNA Stat Lab 02/08/24 13:20 Received Lipid Panel Stat Lab 02/08/24 13:20 Completed Prothrombin Time INR Stat Lab 02/08/24 13:20 Completed Troponin I Q3H Lab 02/08/24 16:30 Ordered Troponin I Q3H Lab 02/08/24 19:30 Ordered Troponin I Stat Lab 02/08/24 13:20 Completed Urinalysis and Microscopic Stat Lab 02/08/24 13:27 Ordered ECG Request Stat Y 02/08/24 13:27 Ordered ECG Data Tracing #1: Independently interpreted by me rate of 79, rhythm is regular, no ST elevation in anatomical contiguous leads, QTc 426. Medical Decision Narrative: In summary patient is a 73-year-old male past medical history described above presents emergency department for acute monocular vision loss. Patient will undergo stroke alert as last known normal was 12:15 PM. His NIH is 2. Differential includes hemorrhagic stroke, ischemic stroke, central retinal artery occlusion, among others. [id number]-[id number] ultrasound was done at bedside which does not show any obvious retinal detachment (images were not saved to apartment archive therefore no note is warranted). Patient does have an afferent pupillary defect on the left which is concerning and has consensual constriction that is appropriate. Workup will be conducted with hematologic labs, CTA head and neck, noncontrasted CT scan of the head. I activated viz. AI at 1:49 PM. Per neurosurgery at [facility] no LVO. I requested call from neurology at [facility], stroke navigator will coordinate call from neurology given that patient is in the stroke window. Stroke navigator recommended contacting [facility] for ophthalmology recommendations and transfer needs. Ophthalmology contacted me at 2:23 PM, no acute recommendations from therefore however they do agree the patient is warranted for transfer at this time and Dr. Mirza graciously accepted patient for [facility] evaluation at this time. Stroke neurologist Dr. Soto messaged viz. chat at 2:24 PM and does not recommend tPA. Patient was transferred in stable condition. Critical Care Critical Care Time Critical Care Time: Yes Attestation: On 02/08/24, the high probability of a clinically significant, sudden or life threatening deterioration of the following system(s) required my full and direct attention, intervention and personal management. The time I documented below is in addition to time spent performing reported procedures but includes the following listed in this critical care notation. Total Time Total Critical Care Time: 35
--- NOTE | 2024-02-08 13:32 | HMH.ITSTN ---
stroke protocol not waiting on labs
[2024-02-08 13:34] VITALS: BP 166/96; PULSE 78; O2SAT 96
[2024-02-08] MEDS: SODIUM CHLORIDE 0.9% 10ML SYR (RAD ONLY) 10 ML IV (13:34)
[2024-02-08] MEDS: 0.9 % SODIUM CHLORIDE 50 ML VIAL IV (13:34)
[2024-02-08] MEDS: IOPAMIDOL-370 (76%);100ML BOTTLE 80 ML IV (13:34)
--- NOTE | 2024-02-08 13:43 | PC.NURSE ---
PT RETURNED FROM CT
[2024-02-08 13:47] LABS: Alanine Aminotransferase 58 U/L (12-78); Albumin Level 4.5 g/dl (3.5-5.0); Albumin/Globulin Ratio 1.7 (1.1-1.8); Alkaline Phosphatase 34 U/L (38-126); Anion Gap 13.5 mEq/L (5-15); Aspartate Amino Transferase 48 U/L (17-59); Bilirubin,Total 0.9 mg/dl (0.2-1.3); Blood Urea Nitrogen 18 mg/dl (9-20); Calcium 9.7 mg/dl (8.4-10.2); Carbon Dioxide 24 mmol/L (22.0-30.0); Chloride 106 mmol/L (98-107); Cholesterol 165 mg/dl (140-200); Creatinine Clearance Estimated 64 mL/min (50-200); Estimated Glomerular Filt Rate 59 ml/min (>60); GFR (African American) 72 ML/MIN (>60); Globulin 2.7 g/dL (1.3-3.2); Glucose 134 mg/dl (74-100); HDL Cholesterol 33 mg/dl (40-60); Potassium 4.5 mmoL/L (3.5-5.1); Sodium 139 mmol/L (136-145); Total Protein,Serum 7.2 g/dl (6.3-8.2); Triglycerides 352 mg/dl (30-150); VLDL Cholesterol 70 mg/dL (0-40)
--- NOTE | 2024-02-08 13:48 | ECG_ITS ---
APPROVED REPORT Exam: Resting ECG HR:79 bpm ECG Measurements Heart Rate 79 AXES IA 229 P 23 QRSd 113 QRS -28 QT 391 T 68 QTc 426 Conclusion SINUS RHYTHM WITH FIRST DEGREE AV BLOCK LATERAL MYOCARDIAL INFARCTION , PROBABLY OLD [40+ ms Q WAVE AND/OR ST/T ABNORMALITY IN I/aVL/V5/V6] ABNORMAL ECG Electronically signed by : TOO REDMAN, 02/08/2024 16:56:30
[2024-02-08 13:51] LABS: Activated Partial Thrombo Time 45.3 seconds (22.8-30.6); INR 4.39 (0.9-1.1); Prothrombin Time 42.5 seconds (10.1-12.5)
[2024-02-08 13:58] LABS: Direct LDL Cholesterol 92.23 mg/dL (100-129)
[2024-02-08 13:59] LABS: Ethyl Alcohol < 10 mg/dl (0-10)
[2024-02-08 14:00] LABS: Basophils # 0.1 K/mm3 (0-0.2); Eosinophils # 0.4 K/mm3 (0.0-0.4); Eosinophils % 4.8 % (0.1-12.0); Hematocrit 43.2 % (42.0-52.0); Hemoglobin 14.8 g/dL (14.1-18.0); Lymphocytes # 1.2 K/mm3 (0.7-4.5); Lymphocytes % 16.5 % (10-50); Mean Corpuscular HGB Conc 34.4 g/dL (31.8-35.4); Mean Corpuscular Hemoglobin 33.6 pg (27.0-31.2); Mean Corpuscular Volume 97.9 fl (80-94); Mean Platelet Volume 8.6 fl (7.4-10.4); Monocytes # 0.4 K/mm3 (0.1-1.0); Monocytes % 6.1 % (1.7-9.3); Neutrophils # 5.1 K/mm3 (1.8-7.8); Neutrophils % 71.5 % (37.0-80.0); Platelet Count 254 K/mm3 (142-424); Red Blood Count 4.41 M/mm3 (4.60-6.20); White Blood Count 7.2 K/mm3 (4.8-10.8)
[2024-02-08 14:04] LABS: Troponin I < 0.01 ng/ml (0.00-0.034)
--- NOTE | 2024-02-08 14:16 | PC.NURSE ---
Called [facility] per DR. Mendez for poss transfer, stated they would give us a call back.
[2024-02-08 14:27] LABS: HIV (1&2) Antibody Rapid NONREACTIVE (NONREACTIVE)
--- NOTE | 2024-02-08 14:47 | PC.NURSE ---
[facility] NOTIFIED OF TRANSFER TO ED
[2024-02-08 16:43] VITALS: BP 162/94; PULSE 80; RESP 18; TEMP 36.6; O2SAT 97
[2024-02-09 08:51] LABS: HCV Ab Non Reactive (Non Reactive)
== END 2024-02-08 16:45 | disposition short-term general hospital (02) ==
PROVIDERS: Emergency Provider Emergency Medicine; PCP Family Medicine
DX: H21.562 Pupillary abnormality, left eye (principal); H54.62 Unqualified visual loss, left eye, normal vision right eye
CPT/HCPCS: 70450; 70496; 70498; 80053; 80061; 80320; 84484; 85025; 85610; 85730; 86803; 87389; 93005; 99291; G0480; Q9967

== ENCOUNTER 2024-02-22 13:05 | Outpatient (CLI) | payer MEDICARE, SELFPAY ==
--- NOTE | 2024-02-22 13:07 | CA_ITS ---
APPROVED REPORT EXAM: Comprehensive 2D, Doppler, and color-flow Echocardiogram Piped Pocket Machine Operator: Abbie Clarke CRT Ht: 5 ft 8 in Wt: 191lbs BSA: 2.00 BP: 135/77 mmHg Indications: MVR ST JUAN 16 yrs ago, TIA w/vision loss in left eye, HLD 2D Dimensions LA Volume 35.70 mL LA Volume Index 17.40 mL/m2 (M/F) 16-34 M-Mode Dimensions RVDd 3.60 cm (0.9-2.6) LA Diam 3.83 cm (1.9-4.0) LVDd 5.46 cm (3.5-5.7) LVDs 4.06 cm (3.5-5.7) IVSd 1.90 cm (0.6-1.1) PWd 0.64 cm (0.6-1.1) EF (Teich) 50.00% FS 25.60% EDV (Teich) 145.00 mL TAPSE 0.80 (<1.7) ESV (Teich) 72.50 mL LV Diastology E Decel Time 207 (160-240 msec) E/A Ratio 0.67 MED A' 8.60 cm/s LAT A' 10.80 cm/s Aortic Valve NINI Index 1.17 cm2/m2 AoV Peak Umesh. 180.0 (50-130 cm/s) AI PHT 281.00 ms AO Peak GR. 13.00 mmHg AO Mean GR. 7.10 (<5 mmHg) AO VTI 34.0 (18-25 cm) NINI (VTI) 2.40 (2.5-4.5 cm2) Mitral Valve MV E Max Umesh. 126.0 (40-130 cm/s) MV A Velocity 186.0 (40-130 cm/s) E/A Ratio 0.67 MV PHT 61.0 ms Pulmonary Valve PV Peak Velocity 116.0 (50-150 cm/s) Tricuspid Valve TR P. Velocity 221.00 cm/s RAP Estimate 10.00 mmHg RVSP 29.60 mmHg Left Ventricle The left ventricle is normal size. Left ventricular systolic function is mildly decreased. There is increased LV wall thickness. There is mild reduction global LV systolic function. Septum is asynchronous. Diastolic function is indeterminate. LVEF is 45%. Right Ventricle The right ventricle is normal size. The right ventricular systolic function is normal. Atria Left atrium is mildly dilated. The right atrium size is normal. There is no Doppler evidence of interatrial shunt. Aortic Valve Aortic valve is mildly thickened. There is no aortic valvular stenosis. Mild aortic regurgitation. Mitral Valve s/p mechanical MVR. The prosthesis is well-seated. Mean MV gradient 5 mmHg. PHT is 90 ms. Mild mitral regurgitation. Tricuspid Valve Tricuspid valve is grossly normal in structure and function. Mild tricuspid regurgitation. RVSP is 20-25 mmHg. Pulmonic Valve The pulmonary valve is normal in structure. Mild pulmonic regurgitation. Great Vessels The aortic root is normal in size. The ascending aorta is normal in size. IVC is normal in size and collapses >50% with inspiration. Pericardium There is no pericardial effusion. Other Information Study Quality: Fair Conclusion Mild reduction in LV systolic function (LVEF 45%). Asynchronous septum. Mild LA dilation. s/p mechanical MVR. Mild MR. Acceptable MV gradients. No evidence of MVR mobile echodensities or masses. Mild AI, mild TR, mild NC. Electronically signed by : Angela Mccoy MD 03/06/2024 22:46:27
== END 2024-02-22 23:59 | disposition home or self-care (01) ==
LOC: RT 13:05
PROVIDERS: PCP Family Medicine; Visit Provider Physician Assistant
DX: Z95.2 Presence of prosthetic heart valve (principal)
CPT/HCPCS: 93306

== ENCOUNTER 2024-03-03 11:29 | Outpatient (CLI) | payer MEDICARE, SELFPAY ==
[2024-03-03 11:54] LABS: PHA INR Fingerstick 4.1 (0.9-1.1)
== END 2024-03-03 11:56 ==
LOC: ACC 11:30
PROVIDERS: PCP Family Medicine; Visit Provider Nurse Practitioner
DX: Z79.01 Long term (current) use of anticoagulants (principal); Z95.2 Presence of prosthetic heart valve
CPT/HCPCS: 85610; 99211; G0463

== ENCOUNTER 2024-03-31 11:48 | Outpatient (CLI) | payer MEDICARE, SELFPAY ==
[2024-03-31 12:03] LABS: PHA INR Fingerstick 2.9 (0.9-1.1)
== END 2024-03-31 12:04 ==
LOC: ACC 11:50
PROVIDERS: PCP Family Medicine; Visit Provider Nurse Practitioner
DX: Z79.01 Long term (current) use of anticoagulants (principal); Z95.2 Presence of prosthetic heart valve
CPT/HCPCS: 85610; 99211; G0463

== ENCOUNTER 2024-04-28 12:27 | Outpatient (CLI) | payer MEDICARE, SELFPAY ==
[2024-04-28 18:58] LABS: Alanine Aminotransferase 64 U/L (12-78); Albumin Level 4.8 g/dl (3.5-5.0); Albumin/Globulin Ratio 2.2 (1.1-1.8); Alkaline Phosphatase 41 U/L (38-126); Anion Gap 15.9 mEq/L (5-15); Aspartate Amino Transferase 66 U/L (17-59); Bilirubin,Total 0.9 mg/dl (0.2-1.3); Blood Urea Nitrogen 16 mg/dl (9-20); Calcium 9.8 mg/dl (8.4-10.2); Carbon Dioxide 20 mmol/L (22.0-30.0); Chloride 106 mmol/L (98-107); Chol/HDL Ratio 6.4 (1-3.5); Cholesterol 178 mg/dl (140-200); Estimated Glomerular Filt Rate 54 ml/min (>60); GFR (African American) 65 ML/MIN (>60); Globulin 2.2 g/dL (1.3-3.2); Glucose 146 mg/dl (74-100); HDL Cholesterol 28 mg/dl (40-60); Potassium 4.9 mmoL/L (3.5-5.1); Sodium 137 mmol/L (136-145); Triglycerides 391 mg/dl (30-150); VLDL Cholesterol 78 mg/dL (0-40)
[2024-04-29 05:33] LABS: Microalbumin/Creatinine Ratio 21.1
[2024-04-29 05:38] LABS: Creatinine,Urine Random 236 mg/dL (Not Estab.)
== END 2024-04-28 23:59 | disposition home or self-care (01) ==
LOC: LAB.DROPOF 04-29 14:48
PROVIDERS: PCP Family Medicine; Visit Provider Family Medicine
DX: E78.5 Hyperlipidemia, unspecified (principal); E11.9 Type 2 diabetes mellitus without complications; Z79.84 Long term (current) use of oral hypoglycemic drugs
CPT/HCPCS: 80053; 80061; 82043; 82570

== ENCOUNTER 2024-05-12 11:20 | Outpatient (CLI) | payer MEDICARE, SELFPAY ==
[2024-05-12 11:38] LABS: PHA INR Fingerstick 3.9 (0.9-1.1)
== END 2024-05-12 11:40 ==
LOC: ACC 11:20
PROVIDERS: PCP Family Medicine; Visit Provider Nurse Practitioner
DX: Z79.01 Long term (current) use of anticoagulants (principal); Z95.2 Presence of prosthetic heart valve
CPT/HCPCS: 85610; 99211; G0463

== ENCOUNTER 2024-05-27 06:05 | Day surgery (SDC) | payer MEDICARE, SELFPAY ==
[2024-05-24 09:30] VITALS: BMI 29.5
[2024-05-27] VITALS (7 sets, daily range): BP systolic 104–136; BP diastolic 58–77; PULSE 86–123; RESP 16–18; TEMP 36.1–36.5; O2SAT 92–97
[2024-05-27 06:42] LABS: POC Glucose,Bedside 149 (70-110)
[2024-05-27] MEDS: LACTATED RINGERS 1000ML 1,000 ML 50 ML IV (06:44)
--- NOTE | 2024-05-27 06:47 | EXP.ANES.CKL ---
[facility] Disclaimer: The information contained in this section may have been updated after the patient was seen, as this information can be updated by other users. Medical History (Updated 05/27/24 @ 06:42 by Cassie Reeves RN) Hypothyroid Hyperlipidemia Hypertension Coronary artery disease History of heart attack Surgical History History of hernia repair History of open heart surgery Family History Other No significant family history Social History (Updated 05/27/24 @ 06:42 by Cassie Reeves RN) Smoking Status: Never smoker alcohol intake: current alcohol intake frequency: a few times a month substance use type: denies use current occupational status: retired Travel in the last 8 weeks: None household members: spouse housing: house caffeine: Yes Have you lived/traveled outside [place] in past 30 days?: No Contact w/someone who lives/traveled outside US past 30 days?: No Exposure to someone with infectious disease in past 14 days?: No Do you have a fever (greater than 100.4 F or 38 C)?: No Have you tested positive for COVID-19: No Exposed to someone with COVID-19 in past 14 days?: No Do you have a sore throat?: No Do you have a cough?: No Do you have any weakness?: No Are you experiencing any nausea/vomitting?: No Do you have any diarrhea?: No Are you experiencing any unusual bleeding?: No Do you have any muscle aches/pain?: No Do you have any abdominal pain?: No Are you experiencing loss of taste or smell?: No [facility] Anesthesia Checklist Patient Identification Patient Identification: Arm Band and Verbal (Name & ) Structural Data Admitted From: Home Planned Operative Procedure/s: colonoscopy Consent for Planned Operative Procedure(s) Verified: Yes Verified Documents: Surgical Consent NPO Status Verified Time NPO: 00:00 Additional verifications Patient : No Anesthesia Reactions: No Hx Blood Transfusions: No Blood Transfusion Reaction: No Cephalosporin Allergy: No Previous Colonoscopy: Yes Cardiovascular Assessment Heart Sounds: S1 & S2 Pulse Strength: Baseline Pulse Rhythm: Regular Peripheral Edema: No Airway Assessment Mallampati Score:: Class I C-Spine Mobility Assessed: Yes Dentition: Dentures-good fit Neurological Assessment Level of Consciousness: Awake, Alert and Appropriate Hx Seizures: No Numbness or tingling in extremities: No Anesthesia Plan Anesthesia Risk discussed: Yes Anesthesia Plan: Verified ASA Class: III Anesthesia Type: MAC
--- NOTE | 2024-05-27 07:54 | HMH.SCOPE ---
Procedure: Date: 05/27/24 Patient Date of :: 1950 Procedure Performed:: Total colonoscopy to terminal ileum with polypectomy using biopsy forceps and snare as well as biopsies Indications:: Patient is a pleasant 73-year-old male with history of diabetes, CABG, mitral valve replacement with mechanical valve on chronic warfarin anticoagulation therapy, hypertension, hypothyroidism referred for bleeding hemorrhoids. Patient states that he has had some trouble with hemorrhoids for about 6 months. 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 He has noticed some blood on the toilet paper. He has had some stool frequency and had started Imodium which has actually helped his symptoms. He states that recently since decreasing the frequency of his bowel movements his symptoms are improved. He describes abdominal bloating. He feels the urge to pass gas but has merely small liquid bowel movements. His last colonoscopy was greater than 15 years ago. Performing Provider:: Uriel Johnston MD Referring Provider:: Jc Maxwell MD Sedation:: MAC sedation Procedure:: Patient history was obtained and appropriate physical examination was performed. Patient's medications and allergies were reviewed. Informed consent was obtained after explaining the benefits, alternatives, and risks of the procedure including, but not limited to, bleeding, perforation, missed lesions, and adverse reaction to anesthesia medications. Patient was transported to endoscopy procedure room. Patient was connected to monitoring devices. Throughout the procedure the patient's blood pressure, pulse, and oxygen saturations were monitored continuously. Patient identification and planned procedure were verified by the staff. Patient was positioned in lateral decubitus position. Digital anorectal exam was performed. Variable stiffness Olympus colonoscope was inserted and advanced under direct visualization to the cecum. Adequacy of the colonic preparation was noted. The colonoscope was advanced a short distance into the terminal ileum. The colonoscope was then slowly withdrawn while carefully examining the color, texture, anatomy, and integrity of the mucosoa circumferentially. Within the rectum retroflexion was performed. Colonoscope was then withdrawn. Impression: There was some liquid green opaque stool throughout the colon. This was able to be cleared with suctioning and high-volume trans colonoscopic irrigation and suctioning. Throughout the colon there was some erythema and edema. There were several areas of small shallow exudative ulcerations. Terminal ileum appeared normal but biopsy was obtained. Within the cecum there was an adenomatous appearing polyp removed with cold snare with residual base removed with biopsy forceps. There was a tiny possible adenomatous polyp on the ileocecal valve removed with cold snare with residual tissue at the base removed with biopsy forceps. In the ascending colon there was a tiny diminutive adenomatous appearing polyp removed with biopsy forceps. In the descending colon there was a moderate sessile adenomatous appearing polyp removed with snare with residual tissue removed with biopsy forceps. There is some rare sigmoid diverticulosis. Due to the evidence of possible colitis random right and random left biopsies were obtained using cold biopsy forceps. Effort was made to biopsy the shallow ulcerations and include these with the random biopsies. Retroflexion within the rectum revealed nonpathologic appearing internal hemorrhoids. . Findings:: Findings consistent with nonspecific colitis with occasional shallow ulcerations as noted above throughout the colon Polyps as noted above Rare diverticulosis Minimal internal hemorrhoids . Recommendations:: Management and follow-up colonoscopy pending pathology Complications:: None immediately apparent Estimated blood obtained (mL): 2 Colonoscopy Component Colonoscopy Component Was a colonoscopy performed during today's procedure?: Yes Recommended follow up colonoscopy of at least 10 years?: No If no, follow up colonoscopy recommended in ___ years?: See above Reason for not recommending >/= 10 yr follow-up interval?: See above
--- NOTE | 2024-05-27 11:38 | EXP.ANES.I ---
[facility] Anesthesia Record Part I Anesthesia Record I Intake, IV Amount: 650 Hydration: Adequate Estimated blood loss (mL): 0 Urine output (mL): 0 Blood Products used (#): none Blood Pressure: 136/77 SaO2: 92 Pulse Rate: 123 Airway Patency: Patent Respiratory Rate: 18 Temperature: 97.7 F Patient is:: Awake Stable to PACU at:: 11:38
== END 2024-05-27 08:30 | disposition home or self-care (01) ==
PROVIDERS: PCP Family Medicine; Visit Provider Surgery
PROC: 0DJD8ZZ Inspection of Lower Intestinal Tract, Via Natural or Artificial Opening Endoscopic (ICD-10-PCS; CPT 45380; principal; 2024-05-27 07:30)
DX: D12.2 Benign neoplasm of ascending colon (principal); K52.9 Noninfective gastroenteritis and colitis, unspecified; D12.0 Benign neoplasm of cecum; K57.30 Diverticulosis of large intestine without perforation or abscess without bleeding; K64.8 Other hemorrhoids; K62.5 Hemorrhage of anus and rectum; E11.9 Type 2 diabetes mellitus without complications
CPT/HCPCS: 45380; 45385; 82962; J2704; J7120

== ENCOUNTER 2024-05-31 10:58 | Outpatient (CLI) | payer MEDICARE, SELFPAY ==
--- NOTE | 2024-05-31 | CA_ITS ---
APPROVED REPORT Exam: Pharmacologic Technologist: Halle Crow Ht: 5 ft 8 in Wt: 194 lbs BSA: 2.02 m2 Stress Test Details Test: Lexiscan Reason for pharmacologic stress test: physical limitation. HR Resting HR: 76 bpm Max Heart Rate (APMHR): 146.573254 bpm Max HR Achieved: 103 bpm Target HR (85% APMHR): 124.340434 bpm % of APMHR: 70.55 Recovery HR: 99 bpm BP Resting BP: 136.0/75.0 mmHg Max BP: 146.0/72.0 mmHg Recovery BP: 140.0/76.0 mmHg ECG Stress ECG Conclusion Symptoms: SOB with Lexiscan. Arrhythmias/Ectopy: PVCs after Lexiscan. ST-T Changes: unremarkable with Lexiscan. Electronically signed by : Angela Mccoy MD 06/02/2024 00:00:16
--- NOTE | 2024-05-31 10:59 | NM_ITS ---
APPROVED REPORT Exam: Nuclear Stress Test Indication: Fatigue, DM, High cholesterol, CAD, CABG Patient Location: Outpatient Stress Tech: Halle Clarke MI Tech:Carolyn Monreal, ARRT, RT (R)(N) Ht: 5 ft 8 in Wt: 185 lbs HR: 76 bpm BP: 136/75 mmHg BSA: 1.98 m2 TID: 1.03 BMI: 28.1 History: Fatigue, DM, High cholesterol, CAD, CABG Procedure: Patient received 0.4 mg of intravenous Lexiscan, resting heart rate 76 bpm, resting blood pressure 136/75 mmHg, with Lexiscan maximum heart rate achieved was 109 bpm which is % of the maximum predicted heart rate and blood pressure was 146/72 mmHg. With Lexiscan, patient denied any complaint of chest pain. Cardiac Stress and Resting SPECT Images: Cardiac Stress and Resting SPECT images were obtained using technetium 99m Myoview 32.6 mCi stress and 10.87 mCi at rest. Resting and stress imaging in supine and prone positions demonstrate a large sized, severe, predominantly fixed perfusion defect in the inferior, lateral, and inferolateral LV simmons. There is a region of reversibility laterally. Gated imaging demonstrates moderate reduction global LV systolic function. There is severe hypokinesis of the inferior and lateral LV simmons. LVEF is calculated at 34%. Conclusion: Large sized, severe, predominantly fixed perfusion defect in the inferior, lateral, and inferolateral LV simmons. There is a region of reversibility laterally. Gated imaging demonstrates moderate reduction global LV systolic function. There is severe hypokinesis of the inferior and lateral LV simmons. LVEF is calculated at 34%. Electronically signed by : Angela Mccoy MD 05/31/2024 14:33:41
[2024-05-31] MEDS: REGADENOSON 0.4MG/5ML SYRINGE 0.4 MG IV (13:12)
[2024-05-31] MEDS: SODIUM CHLORIDE 0.9% 10ML SYR (RAD ONLY) 10 ML IV ×2 (13:12→13:13)
[2024-05-31] MEDS: ISOTOPE MYOVIEW (PER STUDY) 1 DOSE IV (13:13)
== END 2024-05-31 23:59 | disposition home or self-care (01) ==
LOC: RAD 10:59
PROVIDERS: PCP Family Medicine; Visit Provider Physician Assistant
DX: I10 Essential (primary) hypertension (principal); I25.10 Atherosclerotic heart disease of native coronary artery without angina pectoris; Z95.1 Presence of aortocoronary bypass graft; Z95.2 Presence of prosthetic heart valve; E78.5 Hyperlipidemia, unspecified
CPT/HCPCS: 78452; 93017; 93018; A9502; J2785

== ENCOUNTER 2024-06-01 11:06 | Outpatient (CLI) | payer MEDICARE, SELFPAY ==
[2024-06-01 13:15] LABS: PHA INR Fingerstick 1.8 (0.9-1.1)
== END 2024-06-01 13:25 ==
LOC: ACC 11:07
PROVIDERS: PCP Family Medicine; Visit Provider Nurse Practitioner
DX: Z95.2 Presence of prosthetic heart valve (principal); Z79.01 Long term (current) use of anticoagulants
CPT/HCPCS: 85610; 99211; G0463

== ENCOUNTER 2024-06-08 16:09 | Outpatient (CLI) | payer MEDICARE, SELFPAY ==
[2024-06-08 16:39] LABS: Basophils # 0.1 K/mm3 (0-0.2); Basophils % 0.8 % (0.1-2.0); Eosinophils # 0.5 K/mm3 (0.0-0.4); Eosinophils % 4.8 % (0.1-12.0); Hemoglobin 13.9 g/dL (14.1-18.0); Lymphocytes % 10.2 % (10-50); Mean Corpuscular HGB Conc 33.1 g/dL (31.8-35.4); Mean Corpuscular Hemoglobin 32.9 pg (27.0-31.2); Mean Corpuscular Volume 99.5 fl (80-94); Monocytes # 0.6 K/mm3 (0.1-1.0); Monocytes % 6.4 % (1.7-9.3); Neutrophils # 7.4 K/mm3 (1.8-7.8); Neutrophils % 77.4 % (37.0-80.0); Platelet Count 330 K/mm3 (142-424); Red Blood Count 4.22 M/mm3 (4.60-6.20); Red Cell Distribution Width 13.4 % (11.5-17.5); White Blood Count 9.5 K/mm3 (4.8-10.8)
[2024-06-08 16:53] LABS: Albumin Level 4.6 g/dl (3.5-5.0); Chloride 106 mmol/L (98-107); Potassium 4.6 mmoL/L (3.5-5.1); Sodium 136 mmol/L (136-145)
[2024-06-08 16:56] LABS: Alanine Aminotransferase 55 U/L (12-78); Albumin/Globulin Ratio 1.8 (1.1-1.8); Alkaline Phosphatase 43 U/L (38-126); Anion Gap 13.6 mEq/L (5-15); Aspartate Amino Transferase 66 U/L (17-59); Bilirubin,Total 0.9 mg/dl (0.2-1.3); Blood Urea Nitrogen 16 mg/dl (9-20); Calcium 10.6 mg/dl (8.4-10.2); Carbon Dioxide 21 mmol/L (22.0-30.0); Estimated Glomerular Filt Rate 50 ml/min (>60); GFR (African American) 60 ML/MIN (>60); Globulin 2.5 g/dL (1.3-3.2); Glucose 139 mg/dl (74-100); Total Protein,Serum 7.1 g/dl (6.3-8.2)
[2024-06-08 17:04] LABS: C-Reactive Protein 2.5 mg/L (0-4)
[2024-06-08 17:26] LABS: Erythrocyte Sedimentation Rate 12 mm/hr (0-20)
== END 2024-06-08 23:59 | disposition home or self-care (01) ==
LOC: LAB 16:10
PROVIDERS: PCP Family Medicine; Visit Provider Nurse Practitioner Family
DX: K52.9 Noninfective gastroenteritis and colitis, unspecified (principal)
CPT/HCPCS: 36415; 80053; 85025; 85651; 86140

== ENCOUNTER 2024-06-09 09:29 | Outpatient (CLI) | payer MEDICARE, SELFPAY ==
[2024-06-09 09:32] LABS: Adenovirus F 40/41, stool Not Detected (NotDetected); Astrovirus Not Detected (NotDetected); Campylobacter Not Detected (NotDetected); Cryptosporidium Not Detected (NotDetected); Cyclospora Cayetanesis Not Detected (NotDetected); Entamoeba histolytica Not Detected (NotDetected); Enteroaggregative E coli Not Detected (NotDetected); Enteropathogenic E coli Not Detected (NotDetected); Enterotoxigenic E coli Not Detected (NotDetected); Giardia lamblia Not Detected (NotDetected); Norovirus Not Detected (NotDetected); Plesimonas Shigalloides, PCR Not Detected (NotDetected); Rotavirus A Not Detected (NotDetected); Salmonella, PCR Not Detected (NotDetected); Sapovirus Not Detected (NotDetected); Shiga-like toxin E coli Not Detected (NotDetected); Shigella Enterovasive E coli Not Detected (NotDetected); Vibrio Cholerae Not Detected (NotDetected); Vibrio, PCR Not Detected (NotDetected); Yersinia Entercolitica, PCR Not Detected (NotDetected)
[2024-06-09 12:03] LABS: Clostridium Difficile A/B, PCR Detected (NotDetected)
[2024-06-12 02:07] LABS: Calprotectin, Fecal 491 ug/g (0-120)
== END 2024-06-09 23:59 | disposition home or self-care (01) ==
LOC: LAB.DROPOF 09:29
PROVIDERS: PCP Family Medicine; Visit Provider Nurse Practitioner Family
DX: K52.9 Noninfective gastroenteritis and colitis, unspecified (principal); R19.4 Change in bowel habit; K92.1 Melena; R14.0 Abdominal distension (gaseous)
CPT/HCPCS: 83993; 87506

== ENCOUNTER 2024-06-13 11:03 | Outpatient (CLI) | payer MEDICARE, SELFPAY ==
[2024-06-13 13:04] LABS: PHA INR Fingerstick 2.7 (0.9-1.1)
== END 2024-06-13 13:14 ==
LOC: ACC 11:03
PROVIDERS: PCP Family Medicine; Visit Provider Nurse Practitioner
DX: Z79.01 Long term (current) use of anticoagulants (principal); Z95.2 Presence of prosthetic heart valve
CPT/HCPCS: 85610; 99211; G0463

== ENCOUNTER 2024-06-14 12:50 | Outpatient (CLI) | payer MEDICARE, SELFPAY ==
--- NOTE | 2024-06-14 12:54 | CA_ITS ---
APPROVED REPORT EXAM: Comprehensive 2D, Doppler, and color-flow Echocardiogram Supervisor Fleshing: Brittani Jones RDCS Ht: 5 ft 8 in Wt: 196lbs BSA: 2.03 BP: 130/62 mmHg Indications: LIMITED EXAM EF CK M-Mode Dimensions RVDd 2.32 cm (0.9-2.6) LA Diam 3.85 cm (1.9-4.0) LVDd 6.35 cm (3.5-5.7) LVDs 5.33 cm (3.5-5.7) IVSd 0.72 cm (0.6-1.1) PWd 0.84 cm (0.6-1.1) EF (Teich) 33.10% FS 16.10% EDV (Teich) 204.80 mL ESV (Teich) 137.10 mL Other Information Study Quality: Fair Conclusion This is a limited TTE to evaluate for LV systolic function. Limited windows are obtained. The left ventricle is moderately dilated. There is increased LV wall thickness. There is moderate reduction global LV systolic function. There is akinesis of the lateral, inferoateral, and anterolateral LV simmons. LVEF is 30-35%. Electronically signed by : Angela Mccoy MD 06/15/2024 12:23:48
== END 2024-06-14 23:59 | disposition home or self-care (01) ==
LOC: RT 12:51
PROVIDERS: PCP Family Medicine; Visit Provider Nurse Practitioner Family
DX: I11.0 Hypertensive heart disease with heart failure (principal); I25.10 Atherosclerotic heart disease of native coronary artery without angina pectoris; I50.20 Unspecified systolic (congestive) heart failure; R93.1 Abnormal findings on diagnostic imaging of heart and coronary circulation; R94.31 Abnormal electrocardiogram [ECG] [EKG]; Z95.2 Presence of prosthetic heart valve; Z95.1 Presence of aortocoronary bypass graft; E78.5 Hyperlipidemia, unspecified; R06.09 Other forms of dyspnea
CPT/HCPCS: 93308

== ENCOUNTER 2024-06-17 07:48 | Day surgery (SDC) | payer MEDICARE, SELFPAY ==
[2024-06-17] VITALS (11 sets, daily range): BP systolic 115–161; BP diastolic 51–106; PULSE 70–90; RESP 18–22; O2SAT 92–95; BMI 29.7
--- NOTE | 2024-06-17 07:02 | IR_ITS ---
APPROVED REPORT Patient Location: Outpatient PROCEDURES Selective coronary angiogram Selective engagement left internal mammary artery to the LAD Selective engagement of the saphenous vein graft to the circumflex artery Selective engagement of the saphenous vein graft to the right coronary Drug-eluting stent deployment to the proximal and mid left anterior descending artery Drug-eluting stent deployment to the ostial proximal segment of the saphenous vein graft supplying the circumflex artery INDICATION Coronary artery disease, History of coronary bypass surgery, New onset ischemic cardiomyopathy with systolic congestive heart failure, Informed consent was obtained prior to the procedure. COMPLICATIONS none Estimated Blood Loss: less than 10ml TECHNIQUE One percent lidocaine used to anesthetize the left anterior aspect of the wrist. The left radial artery was accessed via the Seldinger technique. A 6 Maltese sheath was placed in the left radial artery. 2.5 mg of Verapamil, 800 mcg of nitroglycerin, 1mg Lidocaine were given through the arterial sheath. The JL 3 catheter was also used to perform selective coronary angiogram. At the end the diagnostic angiogram therapeutic heparin was administered giving a therapeutic ACT and the guide cath was placed in left main artery followed by Choice PT extra-support wire down the LAD. Primary stenting could not be performed. At 2 separate 2.5 x 12 mm noncompliant balloons were deployed at 20 and then 22 berenice in order to predilate the stenosis. Stenting could still not be performed therefore a guide liner was advanced which allowed delivery of a 3 mm x 26 mm Leobardo frontier stent which was deployed in the proximal to mid LAD at 18 berenice. An additional 4 mm x 12 mm Leobardo frontier stent was placed proximal to the for stent yet still overlapping and deployed at 20 berenice. A 3.5 x 12 mm noncompliant balloon was advanced into the midportion of the 3 mm stent and deployed at 20 berenice and then pulled back and reinflated at 20 berenice. SAMMY-3 flow was present before and after the procedure. Following this the same catheter was used to perform saphenous vein graft angiography. A wire was advanced and a 3.5 x 26 mm Leobardo frontier stent was placed in the ostial segment at 20 berenice and then slowly deflated. Excellent angiographic results were obtained with wide patency of the graft. The catheter was then used to perform venography of the saphenous vein graft supplying the right coronary artery. At the end of the procedure the apparatus was removed the sheath was removed and hemostasis was achieved using TR banding patient was transferred to the postop putting in stable condition ANGIOGRAPHIC RESULTS The left main artery Normal The left anterior descending artery Proximally calcified at least 80% which extends into the mid segment The circumflex artery Proximally occluded The right coronary artery Proximally occluded The MINER ventriculogram reveals Not performed The left ventricular end-diastolic pressure Not measured NEFF to LAD occluded Saphenous to circumflex artery has an ostial 70 to 80% stenosis. The anastomotic site of the saphenous vein graft to the circumflex artery has 80 to 90% stenoses and attaches to 2 obtuse marginal arteries Saphenous to posterior descending artery is widely patent with diffuse 20 and 30% atheromatous plaque. The posterior descending artery backfills a large posterior lateral ventricular branch IMPRESSION Coronary disease as described above Successful stenting of the proximal to mid LAD severe calcified disease reduced to 0% with 2 contiguous drug-eluting stents Successful stenting of the ostial segment of the saphenous vein graft supplying the circumflex artery severe disease reduced to 0% with 1 drug-eluting stent Anastomotic disease in the saphenous vein graft supplying the 2 obtuse marginal arteries which are not amenable to percutaneous interventions Wide patency of the saphenous vein graft supplying a large posterior descending artery which backfills a large posterolateral branch PLAN 1. Plavix aspirin and Coumadin for 90 days then discontinue aspirin 2. LDL less than 55 achieved with high intensity statin 3. I anticipate ejection fraction will improve with revascularization of the proximal LAD 4. Cardiac rehabilitation 5. Avoidance of tobacco products Electronically signed by : Reji Jin MD 06/17/2024 10:51:23
[2024-06-17 08:26] LABS: Basophils # 0.1 K/mm3 (0-0.2); Basophils % 0.6 % (0.1-2.0); Eosinophils # 0.4 K/mm3 (0.0-0.4); Eosinophils % 4.3 % (0.1-12.0); Hematocrit 44.5 % (42.0-52.0); Lymphocytes % 11.4 % (10-50); Mean Corpuscular HGB Conc 33.7 g/dL (31.8-35.4); Mean Corpuscular Hemoglobin 33.1 pg (27.0-31.2); Mean Corpuscular Volume 98.2 fl (80-94); Mean Platelet Volume 10.9 fl (7.4-10.4); Monocytes # 0.5 K/mm3 (0.1-1.0); Monocytes % 6.1 % (1.7-9.3); Neutrophils # 6.9 K/mm3 (1.8-7.8); Neutrophils % 77.4 % (37.0-80.0); Platelet Count 288 K/mm3 (142-424); Red Blood Count 4.53 M/mm3 (4.60-6.20); Red Cell Distribution Width 13.4 % (11.5-17.5); White Blood Count 8.9 K/mm3 (4.8-10.8)
[2024-06-17 08:37] LABS: INR 2.64 (0.9-1.1); Prothrombin Time 26.9 seconds (10.1-12.5)
[2024-06-17 09:03] LABS: Anion Gap 10.3 mEq/L (5-15); Blood Urea Nitrogen 18 mg/dl (9-20); Calcium 9.4 mg/dl (8.4-10.2); Carbon Dioxide 19 mmol/L (22.0-30.0); Chloride 112 mmol/L (98-107); Creatinine Clearance Estimated 63 mL/min (50-200); Estimated Glomerular Filt Rate 54 ml/min (>60); GFR (African American) 65 ML/MIN (>60); Glucose 175 mg/dl (74-100); Potassium 4.3 mmoL/L (3.5-5.1); Sodium 137 mmol/L (136-145)
[2024-06-17] MEDS: diphenhydrAMINE 50MG/ML VIAL 50 MG IV (09:36)
[2024-06-17] MEDS: HEPARIN 1,000 UNITS/500ML NS (CATH LAB) 3000 UNIT IV (09:36)
[2024-06-17] MEDS: NITROGLYCERIN 800MCG/8ML SYR (CATH LAB) 800 MCG IA (09:37)
[2024-06-17] MEDS: LIDOCAINE 1% 10ML MDV 20 ML IJ (09:37)
[2024-06-17] MEDS: VERAPAMIL 2.5MG/ML 2ML VIAL 2.5 MG IV (09:37)
[2024-06-17] MEDS: 0.9 % SODIUM CHLORIDE 500 ML 25 ML IV (09:38)
[2024-06-17] MEDS: HEPARIN 1,000 UNITS/ML 10ML VIAL (CATH LAB) 10000 UNIT IV (10:06)
[2024-06-17] MEDS: MIDAZOLAM HCL 1MG/ML 5ML VIAL 1 MG IV (10:21)
[2024-06-17] MEDS: FENTANYL 100MCG/2ML VIAL 50 MCG IV (10:23)
[2024-06-17] MEDS: CLOPIDOGREL 300MG TABLET 600 MG PO (10:39)
[2024-06-17] MEDS: IOPAMIDOL-370 (76%);100ML BOTTLE 190 ML IV (13:07)
[2024-06-17 13:10] LABS: CATHL Activated Clotting Time > 400 SEC (74-125)
== END 2024-06-17 14:00 | disposition home or self-care (01) ==
PROVIDERS: PCP Family Medicine; Visit Provider Internal Medicine
DX: Z01.810 Encounter for preprocedural cardiovascular examination (principal); R93.1 Abnormal findings on diagnostic imaging of heart and coronary circulation; I25.10 Atherosclerotic heart disease of native coronary artery without angina pectoris; I11.0 Hypertensive heart disease with heart failure; I50.21 Acute systolic (congestive) heart failure; R94.31 Abnormal electrocardiogram [ECG] [EKG]; E03.9 Hypothyroidism, unspecified; E78.5 Hyperlipidemia, unspecified; E11.9 Type 2 diabetes mellitus without complications; I69.312 Visuospatial deficit and spatial neglect following cerebral infarction; Z95.2 Presence of prosthetic heart valve; Z95.1 Presence of aortocoronary bypass graft; Z79.899 Other long term (current) drug therapy; Z79.85 Long-term (current) use of injectable non-insulin antidiabetic drugs; Z79.84 Long term (current) use of oral hypoglycemic drugs; Z79.01 Long term (current) use of anticoagulants; Z79.82 Long term (current) use of aspirin; Z79.890 Hormone replacement therapy
CPT/HCPCS: 80048; 85025; 85347; 85610; 92920; 92928; 92937; 93459; 99152; 99153; C1725; C1769; C1874; C9600; C9604; J1200; J1644; J3010; Q9967

== ENCOUNTER 2024-06-20 11:35 | Outpatient (CLI) | payer MEDICARE, SELFPAY ==
[2024-06-20 12:02] LABS: Basophils % 0.6 % (0.1-2.0); Eosinophils # 0.4 K/mm3 (0.0-0.4); Hematocrit 42.5 % (42.0-52.0); Hemoglobin 13.9 g/dL (14.1-18.0); Lymphocytes # 0.8 K/mm3 (0.7-4.5); Lymphocytes % 10.9 % (10-50); Mean Corpuscular HGB Conc 32.7 g/dL (31.8-35.4); Mean Corpuscular Hemoglobin 32.9 pg (27.0-31.2); Mean Corpuscular Volume 100.5 fl (80-94); Mean Platelet Volume 10.6 fl (7.4-10.4); Monocytes # 0.5 K/mm3 (0.1-1.0); Monocytes % 6.2 % (1.7-9.3); Neutrophils # 5.6 K/mm3 (1.8-7.8); Neutrophils % 76.9 % (37.0-80.0); Platelet Count 272 K/mm3 (142-424); Red Blood Count 4.23 M/mm3 (4.60-6.20); Red Cell Distribution Width 13.9 % (11.5-17.5); White Blood Count 7.2 K/mm3 (4.8-10.8)
[2024-06-20 12:52] LABS: Chloride 108 mmol/L (98-107); Sodium 137 mmol/L (136-145)
[2024-06-20 12:53] LABS: Potassium 4.6 mmoL/L (3.5-5.1)
[2024-06-20 12:56] LABS: Anion Gap 9.6 mEq/L (5-15); Blood Urea Nitrogen 18 mg/dl (9-20); Calcium 9.8 mg/dl (8.4-10.2); Carbon Dioxide 24 mmol/L (22.0-30.0); Estimated Glomerular Filt Rate 50 ml/min (>60); GFR (African American) 60 ML/MIN (>60); Glucose 208 mg/dl (74-100)
== END 2024-06-20 23:59 | disposition home or self-care (01) ==
LOC: LAB 11:35
PROVIDERS: PCP Family Medicine; Visit Provider Internal Medicine
DX: I25.10 Atherosclerotic heart disease of native coronary artery without angina pectoris (principal); E11.9 Type 2 diabetes mellitus without complications
CPT/HCPCS: 36415; 80048; 85025

== ENCOUNTER 2024-06-29 10:11 | Outpatient (RCR) | payer MEDICARE, SELFPAY | END 2024-09-16 11:00 | disposition home or self-care (01) | LOC: CR 10:11 | PROVIDERS: Visit Provider Internal Medicine | DX: I11.0 Hypertensive heart disease with heart failure (principal); I50.20 Unspecified systolic (congestive) heart failure; K04.7 Periapical abscess without sinus; I25.10 Atherosclerotic heart disease of native coronary artery without angina pectoris; E78.5 Hyperlipidemia, unspecified; R93.1 Abnormal findings on diagnostic imaging of heart and coronary circulation; R94.31 Abnormal electrocardiogram [ECG] [EKG]; Z95.1 Presence of aortocoronary bypass graft; Z95.2 Presence of prosthetic heart valve | CPT/HCPCS: 93798 ==

== ENCOUNTER 2024-07-25 11:04 | Outpatient (CLI) | payer MEDICARE, SELFPAY ==
[2024-07-25 11:37] LABS: PHA INR Fingerstick 2.5 (0.9-1.1)
== END 2024-07-25 11:41 ==
LOC: ACC 11:04
PROVIDERS: PCP Family Medicine; Visit Provider Nurse Practitioner
DX: Z79.01 Long term (current) use of anticoagulants (principal); Z95.2 Presence of prosthetic heart valve
CPT/HCPCS: 85610; 99211; G0463

== ENCOUNTER 2024-08-01 12:33 | Outpatient (CLI) | payer MEDICARE, SELFPAY ==
[2024-08-01 13:28] LABS: PHA INR Fingerstick 2.4 (0.9-1.1)
== END 2024-08-01 13:40 ==
LOC: ACC 12:33
PROVIDERS: PCP Family Medicine; Visit Provider Nurse Practitioner
DX: Z79.01 Long term (current) use of anticoagulants (principal); Z95.2 Presence of prosthetic heart valve
CPT/HCPCS: 85610; 99211; G0463

== ENCOUNTER 2024-08-08 12:27 | Outpatient (CLI) | payer MEDICARE, SELFPAY ==
[2024-08-08 13:19] LABS: PHA INR Fingerstick 3.6 (0.9-1.1)
== END 2024-08-08 13:25 ==
LOC: ACC 12:28
PROVIDERS: PCP Family Medicine; Visit Provider Nurse Practitioner
DX: Z79.01 Long term (current) use of anticoagulants (principal); Z95.2 Presence of prosthetic heart valve
CPT/HCPCS: 85610; 99211; G0463

== ENCOUNTER 2024-08-15 14:18 | Outpatient (CLI) | payer MEDICARE, SELFPAY | END 2024-08-15 16:09 | LOC: ACC 14:18 | PROVIDERS: PCP Family Medicine; Visit Provider Nurse Practitioner | DX: Z79.01 Long term (current) use of anticoagulants (principal); Z95.2 Presence of prosthetic heart valve | CPT/HCPCS: 85610; 99211; G0463 ==

== ENCOUNTER 2024-08-16 10:01 | Outpatient (CLI) | payer MEDICARE, SELFPAY ==
[2024-08-16 10:44] LABS: Basophils % 0.3 % (0.1-2.0); Eosinophils # 0.1 Kmm3 (0.0-0.4); Hematocrit 44.3 % (42.0-52.0); Hemoglobin 14.7 g/dL (14.1-18.0); Immature Granulocytes # 0.04 10^3uL; Immature Granulocytes % 0.5 %; Lymphocytes # 0.9 K/mm3 (0.7-4.5); Lymphocytes % 10.6 % (10-50); Mean Corpuscular HGB Conc 33.2 g/dL (31.8-35.4); Mean Corpuscular Volume 99.6 fl (80-94); Mean Platelet Volume 10.8 fl (7.4-10.4); Monocytes # 0.4 K/mm3 (0.1-1.0); Monocytes % 5.5 % (1.7-9.3); Neutrophils # 6.6 K/mm3 (1.8-7.8); Neutrophils % 82.1 % (37.0-80.0); Nucleated Red Blood Cells # 0 10^3/uL; Nucleated Red Blood Cells % 0 %; Platelet Count 215 K/mm3 (142-424); Red Blood Count 4.45 M/mm3 (4.60-6.20); Red Cell Distribution Width 14.6 % (11.5-17.5); Red Cell Distribution Width-SD 53.8 fL
[2024-08-16 11:04] LABS: Chloride 109 mmol/L (98-107)
[2024-08-16 11:05] LABS: Albumin Level 4.2 g/dl (3.5-5.0); Potassium 4.4 mmoL/L (3.5-5.1); Sodium 137 mmol/L (136-145)
[2024-08-16 11:07] LABS: Alanine Aminotransferase 98 U/L (12-78); Aspartate Amino Transferase 59 U/L (17-59); Blood Urea Nitrogen 27 mg/dl (9-20); Estimated Glomerular Filt Rate 54 ml/min (>60); GFR (African American) 65 ML/MIN (>60)
[2024-08-16 11:08] LABS: Albumin/Globulin Ratio 1.8 (1.1-1.8); Alkaline Phosphatase 39 U/L (38-126); Anion Gap 12.4 mEq/L (5-15); Bilirubin,Total 1.1 mg/dl (0.2-1.3); Calcium 9.6 mg/dl (8.4-10.2); Carbon Dioxide 20 mmol/L (22.0-30.0); Globulin 2.3 g/dL (1.3-3.2); Glucose 146 mg/dl (74-100); Total Protein,Serum 6.5 g/dl (6.3-8.2)
[2024-08-16 11:13] LABS: C-Reactive Protein 0.5 mg/L (0-4)
[2024-08-16 11:45] LABS: Erythrocyte Sedimentation Rate 3 mm/hr (0-20)
[2024-08-23 17:49] LABS: Saccharomyces cerevisiae, IgA <20.0 Units (0.0-24.9); Saccharomyces cerevisiae, IgG 27.1 Units (0.0-24.9)
== END 2024-08-16 23:59 | disposition home or self-care (01) ==
LOC: LAB 10:02
PROVIDERS: PCP Family Medicine; Visit Provider Nurse Practitioner Family
DX: K51.90 Ulcerative colitis, unspecified, without complications (principal)
CPT/HCPCS: 36415; 80053; 85025; 85651; 86140; 86256; 86671

== ENCOUNTER 2024-08-17 12:37 | Outpatient (CLI) | payer MEDICARE, SELFPAY ==
[2024-08-18 14:48] LABS: C difficile Toxins AB, EIA Negative (Negative)
[2024-08-19 07:48] LABS: Calprotectin, Fecal 86 ug/g (0-120)
== END 2024-08-17 23:59 | disposition home or self-care (01) ==
LOC: LAB 12:38
PROVIDERS: PCP Family Medicine; Visit Provider Nurse Practitioner Family
DX: K51.90 Ulcerative colitis, unspecified, without complications (principal)
CPT/HCPCS: 83993; 87324

== ENCOUNTER 2024-08-26 08:37 | Outpatient (CLI) | payer MEDICARE, SELFPAY ==
--- OUTSIDE RECORDS SUMMARY | 2024-08-26 08:38 | XMS_ITS ---
Laboratory report Created on: August 23, 2024 QUIQUE SIU : 1950 Sex: Male Author Organization Unknown PROBLEMS Problems List Code Description RESULTS Laboratory Orders Date Order Code Test 2024-08-16 [id number] C DIFFICILE TOXI NS A+B, EIA 2024-08-16 [id number] CALPROTECTIN, FE BAYRON Laboratory Results Date LOINC Test Value Unit Reference Range Interpre tation 2024-08-16 [id number] C DIFFICILE TOXI NS A+B, EIA N NEGATIVE 2024-08-16 [id number] CALPROTECTIN, FECAL 86 UG/G 0-120
--- NOTE | 2024-08-26 08:45 | CA_ITS ---
APPROVED REPORT EXAM: Limited 2D Echocardiogram Systems Administration Analyst: Odilia Carcamo, RCS, RVS Ht: 5 ft 8 in Wt: 189lbs BSA: 1.99 BP: 111/60 mmHg Indications: EF checkCM, MVR-mechanical, CABG, AICD, Lifevest 2D Dimensions IVSd 1.19 cm M: 0.6-1.2 LVEF (Visual) 31.80 % PWd 1.08 cm M: 0.6 - 1.2 EF AP4 41.00 % LVDd 5.65 cm M: 4.2 - 5.9 GL Strain -11.1 % LVDs 4.79 cm M: 2.5 - 4.0 M-Mode Dimensions RVDd 2.92 cm (0.9-2.6) LA Diam 4.08 cm (1.9-4.0) LVDd 5.57 cm (3.5-5.7) LVDs 4.86 cm (3.5-5.7) IVSd 1.17 cm (0.6-1.1) PWd 1.25 cm (0.6-1.1) EF (Teich) 32.70% FS 15.80% EDV (Teich) 164.60 mL ESV (Teich) 110.70 mL Other Information Study Quality: Fair Conclusion This is a limited TTE to evaluate for LV systolic function. Limited windows were obtained. The left ventricle is normal in size. There is increased LV wall thickness. There is mild to moderate reduction global LV systolic function. There is moderate hypokinesis of the inferior, anterolateral, and anterolateral LV simmons. LVEF is 40%. Compared to prior study from 06/14/2024, the LV systolic function has improved, but continues to be reduced. Electronically signed by : Angela Mccoy MD 08/27/2024 20:39:37
== END 2024-08-26 23:59 | disposition home or self-care (01) ==
LOC: RT 08:37
PROVIDERS: PCP Family Medicine; Visit Provider Nurse Practitioner Family
DX: I25.118 Atherosclerotic heart disease of native coronary artery with other forms of angina pectoris (principal); R93.1 Abnormal findings on diagnostic imaging of heart and coronary circulation; I42.9 Cardiomyopathy, unspecified; Z95.1 Presence of aortocoronary bypass graft; Z95.810 Presence of automatic (implantable) cardiac defibrillator; Z95.2 Presence of prosthetic heart valve
CPT/HCPCS: 93308

== ENCOUNTER 2024-09-05 12:11 | Outpatient (CLI) | payer MEDICARE, SELFPAY ==
--- OUTSIDE RECORDS SUMMARY | 2024-09-05 12:14 | XMS_ITS | Clinical Summary ---
Author Organization [facility] Address [address] [place] [address] Care Team Providers Care Travel Ot Name Role Phone Jc Maxwell MD Primary Care Provider [phone] Jorden Ayala PharmD Unavailable [phone] Allergies No known active allergies Medications aspirin 81 MG EC tablet Take 1 tablet by mouth 1 (one) time each day. 05/16/19 21 Active warfarin (Coumadin) 5 MG tablet Take 1.5 tablets (7.5mg) by mouth once daily except take 2 tablets (10mg) on Thursday or as directed by the Anticoagulation Clinic. 06/12/19 21 Active atorvastatin (Lipitor) 40 MG tablet Take 40 mg by mouth 1 (one) time each day. 05/04/19 23 Active levothyroxine (Synthroid, Levoxyl) 75 MCG tablet Take 75 mcg by mouth 1 (one) time each day. 03/06/20 22 Active metoprolol succinate XL (Toprol-XL) 200 MG 24 hr tablet Take 200 mg by mouth 1 (one) time each day. 03/09/20 22 Active nitroglycerin (Nitrostat) 0.4 MG SL tabletIndicati ons:Coronary artery disease involving nenana coronary artery of nenana heart with angina pectoris (CMS/HCC) Place 1 tablet (0.4 mg total) under the tongue every 5 (five) minutes if needed for chest pain. May repeat dose every 5 minutes for up to 3 doses total. 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; Anticoagulation management encounter 08/23/[address] [phone] Denia Harris, PharmD 07/18/2024 Anticoagulation - Warfarin Visit [address] [phone] Jorden Ayala, PharmD S/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); longterm (current) use of anticoagulants; Anticoagulation management encounter 07/12/[address] [phone] Brook Singleton bronc buster 06/10/2024 Anticoagulation - Warfarin Visit [address] [phone] Althea Hall, PharmD S/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); 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 06/09/[address] [phone] Brook Singleton, bronc buster from Last 3 Months Social History Tobacco Use Types Packs/Day Years Used Date Smoking Tobacco: Former Smokeless Tobacco: Current Sex and Gender Information Value Date Recorded Sex Assigned at Male 02/08/2024 6:31 PM EST Legal Sex Male 8:07 PM EDT Gender Identity Not on file Sexual Orientation Not on file Last Filed Vital Signs Vital Sign Reading Time Taken Comments Blood Pressure 147/76 02/08/2024 9:00 PM EST Pulse 76 02/08/2024 9:00 PM EST Temperature 36.3 C (97.4 F) 02/08/2024 6:07 PM EST Respiratory Rate 20 02/08/2024 8:00 PM EST Oxygen Saturation 96% 02/08/2024 9:00 PM EST Inhaled Oxygen Concentration - - Weight 83.9 kg (185 lb) 02/08/2024 6:06 PM EST Height 172.7 cm (5' 8 ) 02/08/2024 6:06 PM EST Body Mass Index 28.13 02/08/2024 6:06 PM EST Plan of Treatment Health Maintenance Due Date Last Done Comments [facility]-Depression Screening 1950 [facility]-Medicare Annual Wellness (AWV) 1950 [facility]-/Child/Adol SDOH Screenings 1950 [facility]- SDOH Screenings 09/12/1967 [facility]-Adult SDOH Screenings 09/12/1967 CT Colonography 1994 Colonoscopy 1994 FIT-DNA 1994 FIT 1994 FOBT 1994 Sigmoidoscopy 1994 [facility]-Colorectal Cancer Screening 1994 [facility]-Pneumococcal Vaccine: 50+ Years (1 of 1 - PCV) 09/12/1999 [facility]-Zoster Vaccines (1 of 2) 09/12/1999 [facility]-RSV Vaccine: 60+ Years or (1 - Risk 60-74 years 1-dose series) 2009 [facility]-Abdominal Aortic Aneurysm (AAA) Screening 2014 [id number] Vaccine ( season) 2023 02/28/2021, 07/04/2020, 05/25/2020 [facility]-Influenza Vaccine (Season Ended) 2024 02/12/2023 [facility]-DTaP,Tdap,and Td Vaccines (2 - Td or Tdap) 02/12/2033 02/12/2023 [facility]-Hepatitis C Screening Completed 02/08/2024 [facility]-Obesity Intervention Completed 025, 07/18/2024, 06/10/2024, Additional history exists HPV Vaccines Aged Out No longer eligi ble based on patient's age to complete this topic [facility]-HIB Vaccines Aged Out No longer e ligible based on patient's age to complete this topic [facility]-Hepatitis A Vaccines Aged Out No longer eligible based on patient's age to complete this topic [facility]-IPV Vaccines Aged Out No longer e ligible based on patient's age to complete this topic [facility]-Rotavirus Vaccines Aged Out No lo nger eligible based on patient's age to complete this topic Procedures Procedure Name Priority Date/Time Associated Diagnosis Comments EXTERNAL PROTHROMBIN TIME (PT)/INR Routine 08/23/2024 EXTERNAL PROTHROMBIN TIME (PT)/INR Routine 07/18/2024 EXTERNAL PROTHROMBIN TIME (PT)/INR Routine 06/10/2024 HEPATITIS C ANTIBODY - ED W/REFLEX TO HCV QUANT PCR STAT 02/08/2024 6:05 PM EST from Last 3 Months or Most Recently Relevant to Health Maintenance Results * External Prothrombin Time (PT)/INR (08/23/2024) Only the most recent of3 resultswithin the time period is included. External INR - Internormal Ratio 2.6 HOME POCT PT/INR METER External Prothrombin Time (PT) HOME POCT PT/INR METER Blood Venous blood specimen / Unknown 08/23/2024 Li Gonzalez MD POINT OF CARE TEST ENTER/ EDIT ORDERABLES Final Result HOME POCT PT/INR METER * Hepatitis C Antibody - ED (02/08/2024 6:05 PM EST) Hepatitis C Antibody Negative Negative 02/08/2024 7:34 PM EST [facility] Blood Venous blood specimen / Unknown Venipuncture / Unknown 02/08/2024 6:05 PM EST 02/08/2024 6:28 PM EST Alton Chavez MD LAB BLOOD ORDERABLES Final Resul t [facility] [address] [place] [address] from Last 3 Months or Most Recently Relevant to Health Maintenance Insurance [employer] MEDICARE Care Teams Travel Ot Relationship Specialty Start Date End Date Jc Maxwell MD PCP - General 06/04/22 Jorden Ayala, PharmD [address] [place] [phone] Pharmacist Pharmacy 10/30/23
--- OUTSIDE RECORDS SUMMARY | 2024-09-05 12:14 | XMS_ITS | Encounter Summary ---
Author Organization [facility] Address [address] [place] [address] Care Team Providers Care Television Journalist Name Role Phone Jc Maxwell MD Primary Care Provider [phone] Jorden Ayala PharmD Unavailable Encounter Details Date Type Department Care Team (Latest Contact Info) Description 07/18/2024 Anticoagulation - Warfarin Visit [facility] 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; Anticoagulation management encounter Social History Tobacco Use Types Packs/Day Years Used Date Smoking Tobacco: Former Smokeless Tobacco: Current Sex and Gender Information Value Date Recorded Sex Assigned at Male 02/08/2024 6:31 PM EST Legal Sex Male 8:07 PM EDT Gender Identity Not on file Sexual Orientation Not on file documented as of this encounter Miscellaneous Notes * Progress Notes - Jorden Ayala, PharmD - 07/18/2024 10:28 AM EDT Anticoagulation Clinic Pharmacy Note History of Present Illness Anticoagulation Summary As of 07/18/2024 INR goal: 2.5-3.5 TTR: 94.9% (3.8 y) INR used for dosin.8 (07/18/2024) Warfarin maintenance plan: 7.5 mg (7.5 mg x 1) every day Weekly warfarin total: 52.5 mg No change documented: Jorden Ayala, PharmD Plan last modified: Deina Harris, PharmD (10/16/2023) Next INR check: 08/15/2024 Target end date: Indefinite Indications S/P mitral valve replacement [Z95.2] 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 [Z79.01] Anticoagulation Episode Summary INR check location: Home Draw Preferred lab: HOME POCT PT/INR METER Send INR reminders to: [facility] Comments: [facility] Anticoagulation Care Providers Provider Role Specialty Phone number Gaudencio Interiano MD Cardiology [phone] Harry Han MD Cardiology [phone] Additional History: mMVR 2007 at [facility] CAD s/p 4V CABG Rational for warfarin > DOAC: presence of mechanical Bridging required (per referral): Yes, for interruptions in therapy Bleeding history: No DDIs: -aspirin: enhances the anticoagulant effect of warfarin and increases bleeding risk with concomitant use -levothyroxine: may enhance the anticoagulant effect of warfarin Dietary vitamin K intake: Yes, maintains consistent intake EtOH use: No Smoking/recreational drug use: No [facility] Managing Provider: Dr. Lizeth Arroyo ([facility] Han[facility] - Last office visit: 06/04/22 - Upcoming office visit: TBD Subjective Bruising: No Bleeding signs/symptoms: No Major bleeding event: No Thrombosis signs/symptoms: No Thromboembolic event: No Missed doses: No Extra doses: No Medication changes: No Dietary changes: No Alcohol changes: No Daily activity changes: No Health changes: No ED visit: No Hospital admission: No Upcoming dental procedure: No Upcoming invasive procedure: No Laboratory test error suspected: No Other concerns: No Additional comments: The following portions of the chart were reviewed this encounter and updated as appropriate: Meds Objective INR: Lab Results Component Value Date INR 2.8 07/18/2024 INR 2.7 06/10/2024 INR 3.3 05/12/2024 Renal function: Lab Results Component Value Date CREATININE 1.21 (H) 02/08/2024 EGFR 62.8 02/08/2024 CBC: Lab Results Component Value Date HGB 14.1 02/08/2024 HCT 42.2 02/08/2024 MCV 98 02/08/2024 PLT 264 02/08/2024 Liver function: Lab Results Component Value Date ALT 47 02/08/2024 AST 38 02/08/2024 ALKPHOS 35 (L) 02/08/2024 BILITOT 0.6 02/08/2024 Weight: Wt Readings from Last 1 Encounters: 02/08/24 83.9 kg (185 lb) BMI: Estimated body mass index is 28.13 kg/m?? as calculated from the following: Height as of 02/08/24: 1.727 m (5' 8 ). Weight as of 02/08/24: 83.9 kg (185 lb). Assessment and Plan Current warfarin dose: 7.5 mg daily Therapeutic INR for goal of 2.5-3.5. New warfarin dose: no change Follow Up Checks INR with [facility] meter every 1 month per insurance. Patient Education Patient will continue to check INR with home PT/INR meter weekly but has permitted the clinic to call them monthly to discuss INR and anticoagulation as long as INR remains therapeutic. Patient is aware to contact Anticoagulation Clinic with any questions, issues, concerns if needed. Contact the Anticoagulation Clinic at [phone] with any questions or concerns regarding yourwarfarin. Patient verbalized understanding of above care plan: YES Jorden Ayala, ToritoD, BCACP, CACP [facility] documented in this encounter Plan of Treatment Not on file documented as of this encounter Procedures Procedure Name Priority Date/Time Associated Diagnosis Comments EXTERNAL PROTHROMBIN TIME (PT)/INR Routine 07/18/2024 documented in this encounter Results * External Prothrombin Time (PT)/INR (07/18/2024) External INR - Internormal Ratio 2.8 HOME POCT PT/INR METER External Prothrombin Time (PT) HOME POCT PT/INR METER Blood Venous blood specimen / Unknown 07/18/2024 us Historical Provider POINT OF CARE TEST ENTER/ EDIT ORDERABLES Final Result HOME POCT PT/INR METER documented in this encounter Visit Diagnoses Diagnosis S/P mitral valve replacement- Primary Heart valve replaced by other means senior care (current) use of anticoagulants Long-term (current) use of anticoagulants Anticoagulation management encounter Encounter for therapeutic drug monitoring documented in this encounter Additional Health Concerns Assessment Noted Time A fall risk assessment has been complete d for the patient 06/04/2022 3:35 PM EST A Body Mass Index follow-up plan has been documented for the patient 07/18/2024 10:29 AM EDT documented as of this encounter Care Teams Television Journalist Relationship Specialty Start Date End Date Jc Maxwell MD PCP - General 06/04/22 Jorden Ayala, PharmD [address] [place] [phone] Pharmacist Pharmacy 10/30/23 documented as of this encounter
--- OUTSIDE RECORDS SUMMARY | 2024-09-05 12:14 | XMS_ITS | Encounter Summary ---
Author Organization Healthcare Address [address] [place] [address] Care Team Providers Care Wire Worker Name Role Phone Robin Carolyn Blank PharmD Unavailable [phone] Jc Maxwell MD Primary Care Provider [phone] Jorden Ayala PharmD Unavailable [phone] Encounter Details Date Type Department Care Team (Late st Contact Info) Description 02/08/2024 Ophth Exam [facility] [address] [place] [phone] Manan Walker MD [address] [place], [place] [id number] Social History Tobacco Use Types Packs/Day Years Used Date Smoking Tobacco: Former Smokeless Tobacco: Current Sex and Gender Information Value Date Recorded Sex Assigned at Male 02/08/2024 6:31 PM EST Legal Sex Male 8:07 PM EDT Gender Identity Not on file Sexual Orientation Not on file documented as of this encounter Functional Status * Calculated C-SSRS Risk Score (Lifetime/Recent) Answer Date of Assessment Author No Risk Indicated 02/08/2024 7:15 PM Patricia García RN * Question Answer Date of Assessment Author 1. Wish to be (Past 1 Month) No 024 7:15 PM Patricia García RN 2. Non-Specific Active Suici ashutosh Thoughts (Past 1 Month) No 02/08/2024 7:15 PM Patricia García RN 6. Suicidal Behavior (Lifetime) No 4 7:15 PM Patricia García RN documented as of this encounter Plan of Treatment Not on file documented as of this encounter Visit Diagnoses Not on filedocumented in this encounter Additional Health Concerns Assessment Noted Time A fall risk assessment has been complete d for the patient 06/04/2022 3:35 PM EST A Body Mass Index follow-up plan has been documented for the patient 01/25/2024 10:59 AM EDT documented as of this encounter Care Teams Wire Worker Relationship Specialty Start Date End Date Jc Maxwell MD [address] [place] [phone] PCP - General 06/04/22 Carolyn Cunningham, PharmD [address] [place] [phone] Pharmacist Pharmacy 10/14/20 02/08/24 Jorden Ayala, PharmD [address] [place] [phone] Pharmacist Pharmacy 10/30/23 documented as of this encounter
--- OUTSIDE RECORDS SUMMARY | 2024-09-05 12:14 | XMS_ITS ---
Laboratory report Created on: August 25, 2024 QUIQUE SIU : 1950 Sex: Male Author Organization Unknown PROBLEMS Problems List Code Description RESULTS Laboratory Orders Date Order Code Test 2024-08-16 [id number] INFLAMMATORY BOW EL DISEASE-IBD Laboratory Results Date LOINC Test Value Unit Reference Range Interpre tation 2024-08-16 [id number] SACCHAROMYCES CEREVISIAE, IGG 27.1 UNITS 0.0-24.9 H 2024-08-16 [id number] SACCHAROMYCES CEREVISIAE, IGA <20.0 UNITS 0.0-24.9 2024-08-16 [id number] ATYPICAL PANCA NANCA TITER NEG:<1:20
--- OUTSIDE RECORDS SUMMARY | 2024-09-05 12:14 | XMS_ITS | Encounter Summary ---
Author Organization Healthcare Address [address] [place] [address] Care Team Providers Care Tablet Tester Name Role Phone Jc Maxwell MD Primary Care Provider [phone] Jorden Ayala PharmD Unavailable [phone] Encounter Details Date Type Department Care Team (Latest Contact Info) Description 08/24/2024 Anticoagulation - Warfarin Visit [facility] [place] [address] [facility]. 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; Anticoagulation management encounter [...] encounter Miscellaneous Notes * Progress Notes - Denia Harris, PharmD - 08/24/2024 10:09 AM EDT Anticoagulation Clinic Pharmacy Note History of Present Illness Anticoagulation Summary As of 08/24/2024 INR goal: 2.5-3.5 TTR: 95.0% (3.8 y) INR used for dosin.6 (08/23/2024) Warfarin maintenance plan: 7.5 mg (7.5 mg x 1) every day Weekly warfarin total: 52.5 mg No change documented: Denia Harris, PharmD Plan last modified: Denia Harris, PharmD (10/16/2023) Next INR check: 09/20/2024 Target end date: Indefinite Indications S/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 CAD s/p 4V CABG Rational for warfarin > DOAC: presence of mechanical Bridging required (per referral): Yes, for interruptions in therapy Bleeding history: No DDIs: -aspirin: enhances the anticoagulant effect of warfarin and increases bleeding risk with concomitant use -levothyroxine: may enhance the anticoagulant effect of warfarin Dietary vitamin K intake: Yes, maintains consistent intake EtOH use: No Smoking/recreational drug use: No Managing Provider: Dr. Lizeth Arroyo ([facility]- [...] INR: Lab Results Component Value Date INR 2.6 08/23/2024 INR 2.8 07/18/2024 INR 2.7 06/10/2024 Renal function: Lab Results Component Value Date [...] New warfarin dose: no change Follow Up Check INR with home meter in 4 weeks . Patient Education Contact the Anticoagulation Clinic at [phone] with any questions or concerns regarding yourwarfarin. Patient verbalized understanding of above care plan: YES Denia Harris, PharmD, BCACP [facility] [address] [place] [phone] documented in this encounter Plan of Treatment Not on file documented as of this encounter Procedures Procedure Name Priority Date/Time Associated Diagnosis Comments EXTERNAL PROTHROMBIN TIME (PT)/INR Routine 08/23/2024 documented in this encounter Results * External Prothrombin Time (PT)/INR (08/23/2024) External INR - Internormal Ratio 2.6 HOME POCT PT/INR METER External Prothrombin Time (PT) HOME POCT PT/INR METER Blood Venous blood specimen / Unknown 08/23/2024 us Historical Provider POINT OF CARE TEST ENTER/ EDIT ORDERABLES Final Result HOME POCT PT/INR METER documented in this encounter Visit Diagnoses Diagnosis S/P mitral valve replacement- Primary Heart valve replaced by other means 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) use of anticoagulants Long-term (current) use of anticoagulants Anticoagulation management encounter Encounter for therapeutic drug monitoring documented in this encounter Additional Health Concerns Assessment Noted Time A fall risk assessment has been complete d for the patient 06/04/2022 3:35 PM EST A Body Mass Index follow-up plan has been documented for the patient 08/24/2024 10:11 AM EDT documented as of this encounter Care Teams Tablet Tester Relationship Specialty Start Date End Date Jc Maxwell MD PCP - General 06/04/22 Jorden Ayala, PharmD [address] [place] [phone] Pharmacist Pharmacy 10/30/23 documented as of this encounter
--- OUTSIDE RECORDS SUMMARY | 2024-09-05 12:14 | XMS_ITS | Encounter Summary ---
Author Organization Healthcare Address [address] [place] [address] Care Team Providers Care Mixer Operator Vacuum Pan Salt Name Role Phone Jc Maxwell MD Primary Care Provider [phone] Jorden Ayala PharmD Unavailable [phone] Encounter Details Date Type Department Care Team (Late st Contact Info) Description 08/23/2024 Telephone [facility] [place] [address] [place] [address] Denia Harris, PharmD [address] [place] [address] Social History Tobacco Use Types Packs/Day Years Used Date Smoking Tobacco: Former Smokeless Tobacco: Current Sex and Gender Information Value Date Recorded Sex Assigned at Male 02/08/2024 6:31 PM EST Legal Sex Male 8:07 PM EDT Gender Identity Not on file Sexual Orientation Not on file documented as of this encounter Miscellaneous Notes * Progress Notes - Denia Harris PharmD - 08/23/2024 9:22 AM EDT Clinic contacted patient to remind of overdue INR check. Patient reports he will check INR with home meter this afternoon. Denia Harris, PharmD, BCACP Anticoagulation Clinic documented in this encounter Plan [...] documented as of this encounter Care Teams Mixer Operator Vacuum Pan Salt Relationship Specialty Start Date End Date Jc Maxwell MD PCP - General 06/04/22 Jorden Ayala, PharmD [address] [place] [phone] Pharmacist Pharmacy 10/30/23 documented as of this encounter
--- OUTSIDE RECORDS SUMMARY | 2024-09-05 12:14 | XMS_ITS | Encounter Summary ---
Author Organization [facility] Address [address] [place] [address] Care Team Providers Care Accounts Payable Associate Name Role Phone Jc Maxwell MD Primary Care Provider [phone] Jorden Ayala PharmD Unavailable [phone] Encounter Details Date Type Department Care Team (Late st Contact Info) Description 07/12/2024 Telephone [facility] [place] [address] [place] [address] [place] Singleton CPhT Social History Tobacco Use Types Packs/Day Years Used Date Smoking Tobacco: Former Smokeless Tobacco: Current Sex and Gender Information Value Date Recorded Sex Assigned at Male 02/08/2024 6:31 PM EST Legal Sex Male 8:07 PM EDT Gender Identity Not on file Sexual Orientation Not on file documented as of this encounter Miscellaneous Notes * Telephone Encounter - [place] Singleton CPhT - 07/12/2024 11:29 AM EDT Patient missed INR check for the Anticoagulation Clinic scheduled for 07/08/24. Clinic attempted to contact patient on 07/07 to remind him of the upcoming INR check. Patient did not answer, so a voicemail was left notifying the patient of the missed INR check and instructed the patient to contact the clinic. Clinic attempted to contact the patient on 07/12 to notify him of the missed INR check. The patient did not answer and the clinic was unable to leave a message. The Anticoagulation Clinic will continue to attempt to contact patient to check INR. [place] GALVIN, Jose G Anticoagulation Clinic 07/12 documented in this encounter Plan of Treatment Not on file documented as of this encounter Visit Diagnoses Not on filedocumented in this encounter Additional Health Concerns Assessment Noted Time A fall risk assessment has been complete d for the patient 06/04/2022 3:35 PM EST A Body Mass Index follow-up plan has been documented for the patient 06/10/2024 4:18 PM EDT documented as of this encounter Care Teams Accounts Payable Associate Relationship Specialty Start Date End Date Jc Maxwell MD PCP - General 06/04/22 Jorden Ayala, PharmD [address] [place] [phone] Pharmacist Pharmacy 10/30/23 documented as of this encounter
[2024-09-05 14:05] LABS: PHA INR Fingerstick 3.2 (0.9-1.1)
== END 2024-09-05 14:11 ==
LOC: ACC 12:12
PROVIDERS: PCP Family Medicine; Visit Provider Nurse Practitioner
DX: Z79.01 Long term (current) use of anticoagulants (principal)
CPT/HCPCS: 85610; 99211; G0463

== ENCOUNTER 2024-10-03 13:31 | Outpatient (CLI) | payer MEDICARE, SELFPAY ==
--- OUTSIDE RECORDS SUMMARY | 2024-10-03 13:37 | XMS_ITS | Encounter Summary ---
Author Organization Healthcare Address [address] [place] [address] Care Team Providers Care Hospitalist Physician Name Role Phone Robin Carolyn Blank PharmD Unavailable [phone] Jc Maxwell MD Primary Care Provider [phone] Jorden Ayala PharmD Unavailable [phone] Encounter Details Date Type Department Care Team (Late st Contact Info) Description 02/08/2024 Ophth Exam [facility] [address] [place] [phone] Manan Walker MD [address] [place], [place] [id number] Social History Tobacco Use Types Packs/Day Years [...] documented as of this encounter Care Teams Hospitalist Physician Relationship Specialty Start Date End Date Jc Maxwell MD [address] [place] [phone] PCP - General 06/04/22 Carolyn Cunningham, PharmD [address] [place] [phone] Pharmacist Pharmacy 10/14/20 02/08/24 Jorden Ayala, PharmD [address] [place] [phone] Pharmacist Pharmacy 10/30/23 documented as of this encounter
--- OUTSIDE RECORDS SUMMARY | 2024-10-03 13:37 | XMS_ITS | Encounter Summary ---
Author Organization Healthcare Address [address] [place] [address] Care Team Providers Care Mining Professionals Name Role Phone Jc Maxwell MD Primary Care Provider [phone] Jorden Ayala PharmD Unavailable [phone] Encounter Details Date Type Department Care Team (Latest Contact Info) Description 08/24/2024 Anticoagulation - Warfarin Visit [facility] [place] [address] [facility]. 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 [Z79.01] Anticoagulation Episode Summary INR check location: Home Draw Preferred lab: HOME POCT PT/INR METER Send INR reminders to: [facility] Comments: [employer] [facility] Anticoagulation Care Providers Provider Role Specialty Phone number Gaudencio Interiano MD Cardiology [phone] Harry Han MD Cardiology [phone] Additional History: mMVR 2007 at [facility] CAD s/p 4V CABG Rational for [...] Patient Education Contact the Anticoagulation Clinic at [phone] with any questions or concerns regarding yourwarfarin. Patient verbalized understanding of above care plan: YES Denia Harris, ToritoD, BCACP [facility] [address] [place] [phone] documented in this encounter Plan of Treatment [...] Blood Venous blood specimen / Unknown 08/23/2024 Historical Provider POINT OF CARE TEST ENTER/ EDIT ORDERABLES Final Result HOME POCT PT/INR METER documented in this encounter Visit Diagnoses Diagnosis S/P mitral valve replacement- Primary Heart valve replaced by other means half-way (current) use of anticoagulants Long-term (current) use [...] documented as of this encounter Care Teams Mining Professionals Relationship Specialty Start Date End Date Jc Maxwell MD PCP - General 06/04/22 Jorden Ayala, PharmD [address] [place] [phone] Pharmacist Pharmacy 10/30/23 documented as of this encounter
--- OUTSIDE RECORDS SUMMARY | 2024-10-03 13:37 | XMS_ITS | Clinical Summary ---
Author Organization [facility] Address [address] 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 May repeat dose every 5 minutes for up to 3 doses total. 100 tablet 3 06/19/19 23 Active Active Problems Problem Noted Date Diagnosed Date S/P mitral valve replacement 10/14/2020 long-term (current) use of anticoagulants 2020 Encounters Date Type Department Care Team Description 09/21/2024 Anticoagulation - Warfarin Visit [facility] [address] [facility]. 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 [address] Denia Harris, PharmD S/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); long-term (current) use of anticoagulants; Anticoagulation management encounter 08/23/[address] [address] Denia Harris, PharmD 07/18/2024 Anticoagulation - Warfarin Visit [address] [address] Jorden Ayala, PharmD S/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); long-term (current) use of anticoagulants; Anticoagulation management encounter 07/12/[address] [phone] [place] Singleton CPhT from Last 3 Months Social History Tobacco [...] Screening 1949 [facility]-Medicare Annual Wellness (AWV) 1949 [facility]-Infant/Child/Adol SDOH Screenings 1949 [facility]- SDOH Screenings 09/12/1967 [facility]-Adult SDOH Screenings 09/12/1967 CT Colonography 1994 Colonoscopy 1994 FIT-DNA 1994 FIT 1994 FOBT 1994 Sigmoidoscopy 1994 [facility]-Colorectal Cancer Screening 1994 [facility]-Pneumococcal Vaccine: 50+ Years (1 of 1 - PCV) 09/12/1999 [facility]-Zoster Vaccines (1 of 2) 09/12/1999 [facility]-Abdominal Aortic Aneurysm (AAA) Screening 2014 [id number]-[id number]-36 Vaccine (4 - season) 2023 02/28/2021, 07/04/2020, 05/25/2020 [facility]-RSV Vaccine: 60+ Years or (1 - 1-dose 75+ series) 2024 [facility]-Influenza Vaccine (#1) 2024 02/12/2023 [facility]-DTaP,Tdap,and Td Vaccines (2 - Td or Tdap) 02/12/2033 02/12/2023 [facility]-Hepatitis C Screening Completed 02/08/2024 [facility]-Obesity Intervention Completed 025, 08/24/2024, 07/18/2024, Additional history exists HPV Vaccines Aged Out [...] Diagnosis Comments EXTERNAL PROTHROMBIN TIME (PT)/INR Routine 09/21/2024 EXTERNAL PROTHROMBIN TIME (PT)/INR Routine 08/23/2024 EXTERNAL PROTHROMBIN TIME (PT)/INR Routine 07/18/2024 HEPATITIS C ANTIBODY - ED W/REFLEX TO HCV QUANT PCR STAT 02/08/2024 6:05 PM EST from Last 3 Months or Most Recently Relevant to Health Maintenance Results * External Prothrombin Time (PT)/INR (09/21/2024) Only the most recent of3 resultswithin the time period is included. External INR - Internormal Ratio 2.6 HOME POCT PT/INR METER External Prothrombin Time (PT) HOME POCT PT/INR METER Blood Venous blood specimen / Unknown 09/21/2024 Li Gonzalez MD POINT OF CARE TEST ENTER/ EDIT ORDERABLES Final Result HOME POCT PT/INR METER * Hepatitis C Antibody - ED (02/08/2024 6:05 PM EST) Hepatitis C Antibody Negative Negative 02/08/2024 7:34 PM EST [facility] Blood Venous blood specimen / Unknown Venipuncture / Unknown 02/08/2024 6:05 PM EST 02/08/2024 6:28 PM EST Alton Chavez MD LAB BLOOD ORDERABLES Final Resul t [facility] [address] [place] [address] from Last 3 Months or Most Recently Relevant to Health Maintenance Insurance [employer] MEDICARE Care Teams Black Powder Glazing Operator Relationship Specialty Start Date End Date Jc Maxwell MD PCP - General 06/04/22 Jorden Ayala, PharmD [address] [place] [phone] Pharmacist Pharmacy 10/30/23
--- OUTSIDE RECORDS SUMMARY | 2024-10-03 13:37 | XMS_ITS | Encounter Summary ---
Author Organization Healthcare Address [address] [place] [address] Care Team Providers Care Glue Specialty Supervisor Name Role Phone Jc Maxwell MD Primary Care Provider [phone] Jorden Ayala PharmD Unavailable [phone] Encounter Details Date Type Department Care Team (Latest Contact Info) Description 09/21/2024 Anticoagulation - Warfarin Visit [facility] [place] [address] [facility]. 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; Anticoagulation management encounter [...] Progress Notes - Denia Harris, PharmD - 09/21/2024 9:00 AM EDT Anticoagulation Clinic Pharmacy Note History of Present Illness Anticoagulation Summary As of 09/21/2024 INR goal: 2.5-3.5 TTR: 95.1% (3.9 y) INR used for dosin.6 (09/21/2024) Warfarin maintenance plan: 7.5 mg (7.5 mg x 1) every day Weekly warfarin total: 52.5 mg No change documented: Denia Harris PharmD Plan last modified: Denia Harris, ToritoD (10/16/2023) Next INR check: 10/19/2024 Target end date: Indefinite Indications S/P mitral 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 replacement [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.2] 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] Anticoagulation Episode Summary INR check location: Home Draw Preferred lab: HOME POCT PT/INR METER Send INR reminders to: [facility] Comments: [employer] Anticoagulation Care Providers Provider Role Specialty Phone number Gaudencio Interiano MD Cardiology [phone] Harry Han MD Cardiology [phone] Additional History: mMVR 2007 at [facility] CAD s/p 4V CABG Rational for [...] Lab Results Component Value Date INR 2.6 09/21/2024 INR 2.6 08/23/2024 INR 2.8 07/18/2024 Renal function: Lab Results Component Value Date [...] Patient Education Contact the Anticoagulation Clinic at [phone] with any questions or concerns regarding yourwarfarin. Patient verbalized understanding of above care plan: YES Denia Harris, ToritoD, BCACP [facility] [address] [place] [phone] documented in this encounter Plan of Treatment Not on file documented as of this encounter Procedures Procedure Name Priority Date/Time Associated Diagnosis Comments EXTERNAL PROTHROMBIN TIME (PT)/INR Routine 09/21/2024 documented in this encounter Results * External Prothrombin Time (PT)/INR (09/21/2024) External INR - Internormal Ratio 2.6 HOME POCT PT/INR METER External Prothrombin Time (PT) HOME POCT PT/INR METER Blood Venous blood specimen / Unknown 09/21/2024 Historical Provider POINT OF CARE TEST ENTER/ EDIT ORDERABLES Final Result HOME POCT PT/INR METER documented in this encounter Visit Diagnoses Diagnosis S/P mitral valve replacement- Primary Heart valve replaced by other means long-term (current) use of anticoagulants Long-term (current) use of anticoagulants Anticoagulation management encounter Encounter for therapeutic drug monitoring documented in this encounter Additional Health Concerns Assessment Noted Time A fall risk assessment has been complete d for the patient 06/04/2022 3:35 PM EST A Body Mass Index follow-up plan has been documented for the patient 09/21/2024 9:02 AM EDT documented as of this encounter Care Teams Glue Specialty Supervisor Relationship Specialty Start Date End Date Jc Maxwell MD PCP - General 06/04/22 Jorden Ayala, PharmD [address] [place] [phone] Pharmacist Pharmacy 10/30/23 documented as of this encounter
--- OUTSIDE RECORDS SUMMARY | 2024-10-03 13:37 | XMS_ITS | Encounter Summary ---
Author Organization Healthcare Address [address] [place] [address] Care Team Providers Care Domestic Travel Consultant Name Role Phone Jc Maxwell MD Primary Care Provider [phone] Jorden Ayala PharmD Unavailable [phone] Encounter Details Date Type Department Care Team (Late st Contact Info) Description 08/23/2024 Telephone [facility] [place] [address] [facility]. [address] [place] [address] Denia Harris, PharmD [address] [place] [address] Social History Tobacco Use Types Packs/Day Years [...] documented as of this encounter Care Teams Domestic Travel Consultant Relationship Specialty Start Date End Date Jc Maxwell MD PCP - General 06/04/22 Jorden Ayala, PharmD [address] [place] [phone] Pharmacist Pharmacy 10/30/23 documented as of this encounter
[2024-10-03 15:11] LABS: PHA INR Fingerstick 2.6 (0.9-1.1)
== END 2024-10-03 15:13 ==
LOC: ACC 13:31
PROVIDERS: PCP Family Medicine; Visit Provider Nurse Practitioner
DX: Z79.01 Long term (current) use of anticoagulants (principal)
CPT/HCPCS: 85610; 99211; G0463

== ENCOUNTER 2024-11-14 12:58 | Outpatient (CLI) | payer MEDICARE, SELFPAY ==
--- OUTSIDE RECORDS SUMMARY | 2024-11-14 13:01 | XMS_ITS | Encounter Summary ---
Author Organization [facility] Address [address] [place] [address] Care Team Providers Care Sod Stripper Name Role Phone Jc Maxwell MD Primary Care Provider [phone] Jorden Ayala PharmD Unavailable [phone] Encounter Details Date Type Department Care Team (Late st Contact Info) Description 10/18/2024 Telephone [facility] [place] [address] [place] [address] Jorden Ayala, PharmD [address] [place] [address] Social History Tobacco Use Types Packs/Day Years Used Date Smoking Tobacco: Former Smokeless Tobacco: Current Sex and Gender Information Value Date Recorded Sex Assigned at Male 02/08/2024 6:31 PM EST Legal Sex Male 8:07 PM EDT Gender Identity Not on file Sexual Orientation Not on file documented as of this encounter Miscellaneous Notes * Telephone Encounter - Jorden Ayala, PharmD - 10/18/2024 1:24 PM EDT Patient contacted clinic to report that he is being followed now by [facility] for warfarin management. Will sign off of care at this time. If the patient is wishes to re-establish anticoagulation management with the Anticoagulation Clinic, we will re-enroll the patient in the Anticoagulation Clinic with a referral from the patient's Healthcare provider. Of note patient does not currently follow with provider (last visit was 05/2022). Jorden Ayala PharmD, BCACP, CACP [facility] documented in this encounter Plan of Treatment Not on file documented as of this encounter Visit Diagnoses Diagnosis Anticoagulation management encounter- Primary Encounter for therapeutic drug monitoring S/P mitral valve replacement Heart valve replaced by other means [facility] (current) use of anticoagulants Long-term (current) use of anticoagulants documented in this encounter Additional Health Concerns Assessment Noted Time A fall risk assessment has been complete d for the patient 06/04/2022 3:35 PM EST A Body Mass Index follow-up plan has been documented for the patient 10/13/2024 12:41 PM EDT documented as of this encounter Care Teams Sod Stripper Relationship Specialty Start Date End Date Jc Maxwell MD PCP - General 06/04/22 Jorden Ayala PharmD [address] [place] [phone] Pharmacist Pharmacy 10/30/23 documented as of this encounter
--- OUTSIDE RECORDS SUMMARY | 2024-11-14 13:01 | XMS_ITS | Encounter Summary ---
Author Organization Healthcare Address [address] [place] [address] Care Team Providers Care Fund Raiser Name Role Phone Jc Maxwell MD Primary Care Provider [phone] Jorden Ayala PharmD Unavailable [phone] Encounter Details Date Type Department Care Team (Latest Contact Info) Description 10/13/2024 Anticoagulation - Warfarin Visit [facility] Brandon Amarilis [address] [facility]. [address] [place] [address] Denia Harris, PharmD [address] [place] [address] S/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); rn long term care (current) use of anticoagulants; Anticoagulation management encounter [...] Progress Notes - Denia Harris, PharmD - 10/13/2024 12:40 PM EDT Anticoagulation Clinic Pharmacy Note History of Present Illness Anticoagulation Summary As of 10/13/2024 INR goal: 2.5-3.5 TTR: 95.2% (4 y) INR used for dosin.9 (10/13/2024) Warfarin maintenance plan: 7.5 mg (7.5 mg x 1) every day Weekly warfarin total: 52.5 mg No change documented: Denia Harris, PharmD Plan last modified: Denia Harris, PharmD (10/16/2023) Next INR check: 11/10/2024 Target end date: Indefinite Indications S/P mitral valve replacement [Z95.2] [facility] (current) use of anticoagulants [Z79.01] Anticoagulation Episode Summary INR check location: Home Draw Preferred lab: HOME POCT PT/INR METER Send INR reminders to: [facility] Comments: [facility] Anticoagulation Care Providers Provider Role Specialty Phone number Gaudencio Interiano MD Cardiology [phone] Harry Han MD Cardiology [phone] Additional History: mMVR 2007 at [facility] CAD s/p 4V CABG Rational for warfarin [...] INR: Lab Results Component Value Date INR 2.9 10/13/2024 INR 2.6 09/21/2024 INR 2.6 08/23/2024 Renal function: Lab Results Component Value Date [...] Patient Education Contact the Anticoagulation Clinic at [phone] with any questions or concerns regarding yourwarfarin. Patient verbalized understanding of above care plan: YES Denia Harris, PharmD, BCACP [facility] [address] [place] [phone] documented in this encounter Plan of Treatment Not on file documented as of this encounter Procedures Procedure Name Priority Date/Time Associated Diagnosis Comments EXTERNAL PROTHROMBIN TIME (PT)/INR Routine 10/13/2024 documented in this encounter Results * External Prothrombin Time (PT)/INR (10/13/2024) External INR - Internormal Ratio 2.9 HOME POCT PT/INR METER External Prothrombin Time (PT) HOME POCT PT/INR METER Blood Venous blood specimen / Unknown 10/13/2024 Zzzhistorical Provider POINT OF CARE TEST ENT ER/EDIT ORDERABLES Final Result HOME POCT PT/INR METER documented in this encounter Visit Diagnoses Diagnosis S/P mitral valve replacement- Primary Heart valve replaced by other means [facility] [...] documented as of this encounter Care Teams Fund Raiser Relationship Specialty Start Date End Date Jc Maxwell MD PCP - General 06/04/22 Jorden Ayala, PharmD [address] [place] [phone] Pharmacist Pharmacy 10/30/23 documented as of this encounter
--- OUTSIDE RECORDS SUMMARY | 2024-11-14 13:01 | XMS_ITS | Encounter Summary ---
Author Organization Healthcare Address [address] [place] [address] Care Team Providers Care Sheriff Officer Name Role Phone Jc Maxwell MD Primary Care Provider [phone] Jorden Ayala PharmD Unavailable [phone] Encounter Details Date Type Department Care Team (Latest Contact Info) Description 09/21/2024 Anticoagulation - Warfarin Visit [facility] Danese Amarilis [address] [facility]. 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; Anticoagulation management encounter [...] Indefinite Indications S/P mitral valve replacement [Z95.2] long-term (current) use of anticoagulants [Z79.01] Anticoagulation Episode Summary INR check location: Home Draw Preferred lab: HOME POCT PT/INR METER Send INR reminders to: [facility] Comments: [facility] Anticoagulation Care Providers Provider Role Specialty Phone number Gaudencio Interiano MD Cardiology [phone] Harry Han MD Cardiology [phone] Additional History: mMVR 2007 at [facility] CAD s/p 4V CABG Rational for [...] Patient Education Contact the Anticoagulation Clinic at [phone] with any questions or concerns regarding yourwarfarin. Patient verbalized understanding of above care plan: YES Denia Harris, ToritoD, BCACP [facility] Anticoagulation Clinic [facility] [address] [place] [phone] documented in this encounter Plan of Treatment [...] Blood Venous blood specimen / Unknown 09/21/2024 [facility] POINT OF CARE TEST ENT ER/EDIT [...] documented as of this encounter Care Teams Sheriff Officer Relationship Specialty Start Date End Date Jc Maxwell MD PCP - General 06/04/22 Jorden Ayala, PharmD [address] [place] [phone] Pharmacist Pharmacy 10/30/23 documented as of this encounter
--- OUTSIDE RECORDS SUMMARY | 2024-11-14 13:01 | XMS_ITS ---
Author Organization Unknown TREATMENT PLAN [facility] Start Date Provider Encounter for Check-up [id number] [facility]
--- OUTSIDE RECORDS SUMMARY | 2024-11-14 13:01 | XMS_ITS | Encounter Summary ---
Author Organization Healthcare Address [address] [place] [address] Care Team Providers Care Paste Maker Name Role Phone Robin Carolyn Blank PharmD Unavailable [phone] Jc Maxwell MD Primary Care Provider [phone] Jorden Ayala PharmD Unavailable [phone] Encounter Details Date Type Department Care Team (Late st Contact Info) Description 02/08/2024 Ophth Exam [facility] [address] [place] [phone] Manan Walker MD [address] [place], [place] [phone] Social History Tobacco Use Types Packs/Day Years [...] documented as of this encounter Care Teams Paste Maker Relationship Specialty Start Date End Date Jc Maxwell MD [address] [place] [phone] PCP - General 06/04/22 Carolyn Cunningham, PharmD [address] [place] [phone] Pharmacist Pharmacy 10/14/20 02/08/24 Jorden Ayala, PharmD [address] [place] [phone] Pharmacist Pharmacy 10/30/23 documented as of this encounter
--- OUTSIDE RECORDS SUMMARY | 2024-11-14 13:01 | XMS_ITS | Clinical Summary ---
Author Organization [facility] Address [address] [place] [address] Care Team Providers Care Locomotive Observer Name Role Phone Jc Maxwell MD Primary Care Provider [phone] Jorden Ayala PharmD Unavailable [phone] Allergies No known active allergies Medications aspirin [...] MG SL tabletIndicati ons:Coronary artery disease involving [place] coronary artery of [place] heart with angina pectoris (CMS/HCC) Place 1 tablet (0.4 mg total) under the tongue every 5 (five) minutes if needed for chest pain. May repeat dose every 5 minutes for up to 3 doses total. 100 tablet 3 06/19/19 23 Active Active Problems Problem Noted Date Diagnosed Date S/P mitral valve replacement 10/14/2020 shelter (current) use of anticoagulants 2020 Encounters Date Type Department Care Team Description 10/18/[address] [phone] Jorden Ayala, PharmD 10/13/2024 Anticoagulation - Warfarin Visit [address] [phone] Denia Harris, PharmD S/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); shelter (current) use of anticoagulants; Anticoagulation management encounter 09/21/2024 Anticoagulation - Warfarin Visit [address] [phone] Denia Harris, PharmD S/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); 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; Anticoagulation management encounter 08/24/2024 Anticoagulation - Warfarin Visit [address] [phone] Denia Harris, PharmD S/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); 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; Anticoagulation management encounter 08/23/[address] [phone] Denia Harris, PharmD from Last 3 Months Social History Tobacco [...] 09/12/1999 [facility]-Abdominal Aortic Aneurysm (AAA) Screening 2014 [id number] Vaccine ( - season) 2023 02/28/2021, 07/04/2020, 05/25/2020 [facility]-RSV Vaccine: 60+ Years or (1 - 1-dose 75+ series) 2024 [facility]-Influenza Vaccine (#1) 2024 02/12/2023 [facility]-DTaP,Tdap,and Td Vaccines (2 - Td or Tdap) 02/12/2033 02/12/2023 [facility]-Hepatitis C Screening Completed 02/08/2024 [facility]-Obesity Intervention Completed 025, 09/21/2024, 08/24/2024, Additional history exists HPV Vaccines Aged Out [...] Comments EXTERNAL PROTHROMBIN TIME (PT)/INR Routine 10/13/2024 EXTERNAL PROTHROMBIN TIME (PT)/INR Routine 09/21/2024 EXTERNAL PROTHROMBIN TIME (PT)/INR Routine 08/23/2024 HEPATITIS C ANTIBODY - ED W/REFLEX TO HCV QUANT PCR STAT 02/08/2024 6:05 PM EST from Last 3 Months or Most Recently Relevant to Health Maintenance Results * External Prothrombin Time (PT)/INR (10/13/2024) Only the most recent of3 resultswithin the time period is included. External INR - Internormal Ratio 2.9 HOME POCT PT/INR METER External Prothrombin Time (PT) HOME POCT PT/INR METER Blood Venous blood specimen / Unknown 10/13/2024 [facility] POINT OF CARE TEST ENT ER/EDIT ORDERABLES Final Result HOME POCT PT/INR METER * Hepatitis C Antibody - ED (02/08/2024 6:05 PM EST) Hepatitis C Antibody Negative Negative 02/08/2024 7:34 PM EST [facility] Blood Venous blood specimen / Unknown Venipuncture / Unknown 02/08/2024 6:05 PM EST 02/08/2024 6:28 PM EST Alton Chavez MD LAB BLOOD ORDERABLES Final Resul t [facility] [address] [place] [address] from Last 3 Months or Most Recently Relevant to Health Maintenance Insurance [employer] MEDICARE Care Teams Locomotive Observer Relationship Specialty Start Date End Date Jc Maxwell MD PCP - General 06/04/22 Jorden Ayala, PharmD [address] [place] [phone] Pharmacist Pharmacy 10/30/23
[2024-11-14 13:20] LABS: PHA INR Fingerstick 3.5 (0.9-1.1)
== END 2024-11-14 13:22 ==
LOC: ACC 12:58
PROVIDERS: PCP Family Medicine; Visit Provider Nurse Practitioner
DX: Z79.01 Long term (current) use of anticoagulants (principal)
CPT/HCPCS: 85610; 99211; G0463

== ENCOUNTER 2024-12-26 12:49 | Outpatient (CLI) | payer MEDICARE, SELFPAY ==
--- OUTSIDE RECORDS SUMMARY | 2024-12-26 12:52 | XMS_ITS | Encounter Summary ---
Author Organization Healthcare Address [address] [place] [address] Care Team Providers Care Sales Representatives Name Role Phone Robin Carolyn Blank PharmD Unavailable [phone] Jc Maxwell MD Primary Care Provider [phone] Jorden Ayala PharmD Unavailable [phone] Encounter Details Date Type Department Care Team (Late st Contact Info) Description 02/08/2024 Ophth Exam [facility] [address] [place] [phone] Mnaan Walker MD [address] [place], [place] [phone] Social History Tobacco Use Types Packs/Day Years [...] documented as of this encounter Care Teams Sales Representatives Relationship Specialty Start Date End Date Jc Maxwell MD [address] [place] [phone] PCP - General 06/04/22 Carolyn Cunningham, PharmD [address] [place] [phone] Pharmacist Pharmacy 10/14/20 02/08/24 Jorden Ayala, PharmD [address] [place] [phone] Pharmacist Pharmacy 10/30/23 documented as of this encounter
--- OUTSIDE RECORDS SUMMARY | 2024-12-26 12:52 | XMS_ITS | Clinical Summary ---
Author Organization [facility] Address [address] [place] [address] Care Team Providers Care Steam Brush Operator Name Role Phone Jc Maxwell MD Primary Care Provider [phone] Jorden Ayala PharmD Unavailable [phone] Allergies No known active allergies Medications aspirin [...] MG SL tabletIndicati ons:Coronary artery disease involving [place] coronary artery of [place] heart with angina pectoris Place 1 tablet (0.4 mg total) under the tongue every 5 (five) minutes if needed for chest pain. May repeat dose every 5 minutes for up to 3 doses total. 100 tablet 3 06/19/19 23 Active Active Problems Problem Noted Date Diagnosed Date S/P mitral valve replacement 10/14/2020 custodial (current) use of anticoagulants 2020 Encounters Date Type Department Care Team Description 10/18/2024 Telephone [facility] [address] [place] [phone] Jorden Ayala, PharmD 10/13/2024 Anticoagulation - Warfarin Visit [facility] [address] [place] [phone] Denia Harris, PharmD S/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); custodial (current) use of anticoagulants; Anticoagulation management encounter from Last 3 Months Social History Tobacco [...] 09/12/1999 [facility]-Abdominal Aortic Aneurysm (AAA) Screening 2014 [facility]-RSV Vaccine: 60+ Years or (1 - 1-dose 75+ series) 2024 [id number] Vaccine (4 - season) 2024 02/28/2021, 07/04/2020, 05/25/2020 [facility]-Influenza Vaccine (#1) 2024 02/12/2023 [facility]-DTaP,Tdap,and Td [...] Comments EXTERNAL PROTHROMBIN TIME (PT)/INR Routine 10/13/2024 HEPATITIS C ANTIBODY - ED W/REFLEX TO HCV QUANT PCR STAT 02/08/2024 6:05 PM EST from Last 3 Months or Most Recently Relevant to Health Maintenance Results * External Prothrombin Time (PT)/INR (10/13/2024) External INR - Internormal Ratio 2.9 HOME POCT PT/INR METER External Prothrombin Time (PT) HOME POCT PT/INR METER Blood Venous blood specimen / Unknown 10/13/2024 Historical Provider POINT OF CARE TEST ENTER/DARYL T ORDERABLES Final Result HOME POCT PT/INR METER * Hepatitis C Antibody - ED (02/08/2024 6:05 PM EST) Hepatitis C Antibody Negative Negative 02/08/2024 7:34 PM EST [facility] Blood Venous blood specimen / Unknown Venipuncture / Unknown 02/08/2024 6:05 PM EST 02/08/2024 6:28 PM EST Alton Chavez MD LAB BLOOD ORDERABLES Final Resul t [facility] [address] [place] [address] from Last 3 Months or Most Recently Relevant to Health Maintenance Insurance [employer]ET[employer] MEDICARE Care Teams Steam Brush Operator Relationship Specialty Start Date End Date Jc Maxwell MD PCP - General 06/04/22 Jorden Ayala, PharmD [address] [place] [phone] Pharmacist Pharmacy 10/30/23
[2024-12-26 14:49] LABS: Prothrombin Time 90.0 seconds (10.1-12.5)
[2024-12-26 14:51] LABS: INR 8.00 (0.9-1.1)
[2024-12-26 14:56] LABS: PHA INR Fingerstick 8.0 (0.9-1.1)
== END 2024-12-26 14:58 ==
PROVIDERS: PCP Family Medicine; Visit Provider Nurse Practitioner
DX: Z79.01 Long term (current) use of anticoagulants (principal)
CPT/HCPCS: 36415; 85610; 99211; G0463

== ENCOUNTER 2024-12-29 10:50 | Outpatient (CLI) | payer MEDICARE, SELFPAY ==
--- OUTSIDE RECORDS SUMMARY | 2024-12-29 10:54 | XMS_ITS | Clinical Summary ---
Author Organization [facility] Address [address] [place] [address] Care Team Providers Care Engineer And Geologist Name Role Phone Jc Maxwell MD Primary Care Provider [phone] Jorden Ayala PharmD Unavailable [phone] Allergies No known active allergies Medications aspirin [...] MG SL tabletIndicati ons:Coronary artery disease involving [place] coronary artery of [place] heart with angina pectoris Place 1 tablet (0.4 mg total) under the tongue every 5 (five) minutes if needed for chest pain. May repeat dose every 5 minutes for up to 3 doses total. 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 [place] [phone] Jorden Ayala, PharmD 10/13/2024 Anticoagulation - Warfarin Visit [facility] 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; Anticoagulation management encounter [...] or (1 - 1-dose 75+ series) 2024 [id number] Vaccine (4 - season) 2024 02/28/2021, 07/04/2020, [...] Antibody Negative Negative 02/08/2024 7:34 PM EST [facility] Blood Venous blood specimen / Unknown Venipuncture / Unknown 02/08/2024 6:05 PM EST 02/08/2024 6:28 PM EST Alton Chavez MD LAB BLOOD ORDERABLES Final Resul t [facility] [address] [place] [address] from Last 3 Months or Most Recently Relevant to Health Maintenance Insurance AET[employer] MEDICARE Care Teams Engineer And Geologist Relationship Specialty Start Date End Date Jc Maxwell MD PCP - General 06/04/22 Jorden Ayala, PharmD [address] [place] [phone] Pharmacist Pharmacy 10/30/23
--- OUTSIDE RECORDS SUMMARY | 2024-12-29 10:54 | XMS_ITS | Encounter Summary ---
Author Organization Healthcare Address [address] [place] [address] Care Team Providers Care Dietetic Aide Name Role Phone Robin Carolyn Blank PharmD Unavailable [phone] Jc Maxwell MD Primary Care Provider [phone] Jorden Ayala PharmD Unavailable [phone] Encounter Details Date Type Department Care Team (Late st Contact Info) Description 02/08/2024 Ophth Exam [facility] [address] [place] [phone] Manan Walker MD [address] [place], [place] [phone] Social History Tobacco Use Types Packs/Day Years [...] documented as of this encounter Care Teams Dietetic Aide Relationship Specialty Start Date End Date Jc Maxwell MD [address] [place] [phone] PCP - General 06/04/22 Carolyn Cunningham, PharmD [address] [place] [phone] Pharmacist Pharmacy 10/14/20 02/08/24 Jorden Ayala, PharmD [address] [place] [phone] Pharmacist Pharmacy 10/30/23 documented as of this encounter
[2024-12-29 13:32] LABS: PHA INR Fingerstick 2.1 (0.9-1.1)
== END 2024-12-29 13:42 ==
LOC: ACC 10:50
PROVIDERS: PCP Family Medicine; Visit Provider Nurse Practitioner
DX: Z79.01 Long term (current) use of anticoagulants (principal)
CPT/HCPCS: 85610; 99211; G0463

== ENCOUNTER 2025-01-06 12:48 | Outpatient (CLI) | payer MEDICARE, SELFPAY ==
[2025-01-06 13:12] LABS: PHA INR Fingerstick 2.8 (0.9-1.1)
== END 2025-01-06 13:14 ==
LOC: ACC 12:49
PROVIDERS: PCP Family Medicine; Visit Provider Nurse Practitioner
DX: Z79.01 Long term (current) use of anticoagulants (principal)
CPT/HCPCS: 85610; 99211; G0463

== ENCOUNTER 2025-01-30 11:24 | Outpatient (CLI) | payer MEDICARE, SELFPAY ==
--- OUTSIDE RECORDS SUMMARY | 2025-01-30 11:28 | XMS_ITS | Encounter Summary ---
Author Organization Healthcare Address [address] [place] [address] Care Team Providers Care Zig Zag Stitcher Name Role Phone Robin Carolyn Blank PharmD Unavailable [phone] Jc Maxwell MD Primary Care Provider [phone] Jorden Ayala PharmD Unavailable [phone] Encounter Details Date Type Department Care Team (Late st Contact Info) Description 02/08/[address] [facility] [address] [place] [phone] Manan Walker MD [address] [place], [place] [phone] Social History Tobacco Use Types Packs/Day Years [...] documented as of this encounter Care Teams Zig Zag Stitcher Relationship Specialty Start Date End Date Jc Maxwell MD [address] [place] [phone] PCP - General 06/04/22 Carolyn Cunningham, PharmD [address] [place] [phone] Pharmacist Pharmacy 10/14/20 02/08/24 Jorden Ayala, PharmD [address] [place] [phone] Pharmacist Pharmacy 10/30/23 documented as of this encounter
--- OUTSIDE RECORDS SUMMARY | 2025-01-30 11:28 | XMS_ITS | Clinical Summary ---
Author Organization [facility] Address [address] [place] [address] Care Team Providers Care Manager Aerospace Name Role Phone Jc Maxwell MD Primary Care Provider [phone] Jorden Ayala PharmD Unavailable [phone] Allergies No known active allergies Medications aspirin [...] MG SL tabletIndicati ons:Coronary artery disease involving [place] coronary artery of [place] heart with angina pectoris Place 1 tablet (0.4 mg total) under the tongue every 5 (five) minutes if needed for chest pain. May repeat dose every 5 minutes for up to 3 doses total. 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 Social History Tobacco Use Types Packs/Day Years [...] or (1 - 1-dose 75+ series) 2024 [id number] Vaccine (2024- season) 2024 02/28/2021, 07/04/2020, 05/25/2020 [facility]-Influenza Vaccine [...] Procedure Name Priority Date/Time Associated Diagnosis Comments HEPATITIS C ANTIBODY - ED W/REFLEX TO HCV QUANT PCR STAT 02/08/2024 6:05 PM EST from Last 3 Months or Most Recently Relevant to Health Maintenance Results * Hepatitis C Antibody - ED (02/08/2024 6:05 PM EST) Hepatitis C Antibody Negative Negative 02/08/2024 7:34 PM EST [facility] Blood Venous blood specimen / Unknown Venipuncture / Unknown 02/08/2024 6:05 PM EST 02/08/2024 6:28 PM EST Alton Chavez MD LAB BLOOD ORDERABLES Final Resul t [facility] [address] [facility] [place] [address] from Last 3 Months or Most Recently Relevant to Health Maintenance Insurance AETNA MEDICARE Care Teams Manager Aerospace Relationship Specialty Start Date End Date Jc Maxwell MD PCP - General 06/04/22 Jorden Ayala, PharmD [address] [place] [phone] Pharmacist Pharmacy 10/30/23
[2025-01-30 12:03] LABS: Hematocrit 45.5 % (42.0-52.0); Hemoglobin 14.7 g/dL (14.1-18.0); Immature Granulocytes % 0.2 %; Mean Corpuscular HGB Conc 32.3 g/dL (31.8-35.4); Mean Corpuscular Hemoglobin 32.5 pg (27.0-31.2); Mean Corpuscular Volume 100.7 fl (80-94); Nucleated Red Blood Cells % 0 %; Platelet Count 237 K/mm3 (142-424); Red Blood Count 4.52 M/mm3 (4.60-6.20); Red Cell Distribution Width-SD 51.4 fL; White Blood Count 5.6 K/mm3 (4.8-10.8)
[2025-01-30 12:27] LABS: Alanine Aminotransferase 38 U/L (12-78); Albumin Level 4.1 g/dl (3.5-5.0); Albumin/Globulin Ratio 1.5 (1.1-1.8); Alkaline Phosphatase 49 U/L (38-126); Anion Gap 11.3 mEq/L (5-15); Aspartate Amino Transferase 37 U/L (17-59); Bilirubin,Total 0.8 mg/dl (0.2-1.3); Blood Urea Nitrogen 21 mg/dl (9-20); Calcium 9.5 mg/dl (8.4-10.2); Carbon Dioxide 21 mmol/L (22.0-30.0); Chloride 109 mmol/L (98-107); Creatinine,Serum 1.20 mg/dl (0.66-1.25); Estimated Glomerular Filt Rate 59 ml/min (>60); GFR (African American) 71 ML/MIN (>60); Globulin 2.7 g/dL (1.3-3.2); Glucose 160 mg/dl (74-100); Potassium 4.3 mmoL/L (3.5-5.1); Sodium 137 mmol/L (136-145); Total Protein,Serum 6.8 g/dl (6.3-8.2)
[2025-01-30 12:53] LABS: C-Reactive Protein 0.6 mg/L (0-4)
[2025-02-02 00:08] LABS: Calprotectin, Fecal 9 ug/g (0-120)
== END 2025-01-30 23:59 | disposition home or self-care (01) ==
LOC: LAB 11:24
PROVIDERS: PCP Family Medicine; Visit Provider Nurse Practitioner Family
DX: K51.90 Ulcerative colitis, unspecified, without complications (principal)
CPT/HCPCS: 36415; 80053; 83993; 85025; 85651; 86140

== ENCOUNTER 2025-02-01 10:19 | Outpatient (CLI) | payer MEDICARE, SELFPAY ==
--- OUTSIDE RECORDS SUMMARY | 2025-02-01 10:31 | XMS_ITS | Clinical Summary ---
Author Organization [facility] Address [address] [place] [address] Care Team Providers Care Terra Cotta Setter Name Role Phone Jc Maxwell MD Primary Care Provider [phone] Jorden Ayala PharmD Unavailable [phone] Allergies No known active allergies Medications aspirin [...] MG SL tabletIndicati ons:Coronary artery disease involving [place] coronary artery of [place] heart with angina pectoris Place 1 tablet (0.4 mg total) under the tongue every 5 (five) minutes if needed for chest pain. May repeat dose every 5 minutes for up to 3 doses total. 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 Social History [...] or (1 - 1-dose 75+ series) 2024 [id number] Vaccine (2024- season) 2024 02/28/2021, 07/04/2020, 05/25/2020 [...] Antibody Negative Negative 02/08/2024 7:34 PM EST [facility] Blood Venous blood specimen / Unknown Venipuncture / Unknown 02/08/2024 6:05 PM EST 02/08/2024 6:28 PM EST Alton Chavez MD LAB BLOOD ORDERABLES Final Resul t [facility] [address] [place] [facility] [place] [address] from Last 3 Months or Most Recently Relevant to Health Maintenance Insurance AETNA MEDICARE Care Teams Terra Cotta Setter Relationship Specialty Start Date End Date Jc Maxwell MD PCP - General 06/04/22 Jorden Ayala, PharmD [address] [place] [phone] Pharmacist Pharmacy 10/30/23
--- OUTSIDE RECORDS SUMMARY | 2025-02-01 10:31 | XMS_ITS | Encounter Summary ---
Author Organization Healthcare Address [address] [place] [address] Care Team Providers Care Perinatal Instructor Name Role Phone Robin Carolyn Blank PharmD Unavailable [phone] Jc Maxwell MD Primary Care Provider [phone] Jorden Ayala PharmD Unavailable [phone] Encounter Details Date Type Department Care Team (Late st Contact Info) Description 02/08/2024 Ophth Exam [facility] [address] [place] [phone] Manan Walker MD [address] [place], [place] [phone] Social History Tobacco Use Types Packs/Day Years [...] documented as of this encounter Care Teams Perinatal Instructor Relationship Specialty Start Date End Date Jc Maxwell MD [address] [place] [phone] PCP - General 06/04/22 Carolyn Cunningham, PharmD [address] [place] [phone] Pharmacist Pharmacy 10/14/20 02/08/24 Jorden Ayala, PharmD [address] [place] [phone] Pharmacist Pharmacy 10/30/23 documented as of this encounter
[2025-02-01 11:21] LABS: PHA INR Fingerstick 3.0 (0.9-1.1)
== END 2025-02-01 11:34 ==
LOC: ACC 10:19
PROVIDERS: PCP Family Medicine; Visit Provider Nurse Practitioner
DX: Z79.01 Long term (current) use of anticoagulants (principal)
CPT/HCPCS: 85610; 99211; G0463

== ENCOUNTER 2025-03-27 10:02 | Outpatient (CLI) | payer MEDICARE, SELFPAY ==
--- OUTSIDE RECORDS SUMMARY | 2025-03-27 10:08 | XMS_ITS | Encounter Summary ---
Author Organization [facility] Address [address] [place] [address] Care Team Providers Care Chute Loader Name Role Phone Robin Carolyn Blank PharmD Unavailable [phone] Jc Maxwell MD Primary Care Provider Jorden Ayala PharmD Unavailable [phone] Encounter Details Date Type Department Care Team (Late st Contact Info) Description 02/08/2024 Ophth Exam [facility] [address] [place] [address] Manan Walker MD [address] [id number] Social History Tobacco Use Types Packs/Day Years Used Date Smoking Tobacco: Former Smokeless Tobacco: Current Sex and Gender Information Value Date Recorded Sex Assigned at Male 02/08/2024 6:31 PM EST Legal Sex Male 8:07 PM EDT Gender Identity Not on file Sexual Orientation Not on file documented as of this encounter Plan of [...] documented as of this encounter Care Teams Chute Loader Relationship Specialty Start Date End Date Jc Maxwell MD [address] [place] [address] PCP - General 06/04/22 Carolyn Cunningham, PharmD [address] [place] [address] Pharmacist Pharmacy 10/14/20 02/08/24 Jorden Ayala, PharmD [address] [place] [address] Pharmacist Pharmacy 10/30/23 documented as of this encounter
--- OUTSIDE RECORDS SUMMARY | 2025-03-27 10:09 | XMS_ITS | Clinical Summary ---
Author Organization [facility] Address [address] 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 May repeat dose every 5 minutes for up to 3 doses total. 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 Social History [...] or (1 - 1-dose 75+ series) 2024 [id number] Vaccine ( - season) 2024 02/28/2021, 07/04/2020, 05/25/2020 [facility]-Influenza Vaccine (#1) 2024 02/12/2023 [facility]-DTaP,Tdap,and Td Vaccines (2 - Td or Tdap) 02/12/2033 02/12/2023 [facility]-Hepatitis C Screening Completed 02/08/2024 [facility]-Obesity Intervention Completed 025, 09/21/2024, 08/24/2024, Additional history exists HPV Vaccines (No Doses Required) Completed [facility]-HIB Vaccines Aged Out No longer e [...] Antibody Negative Negative 02/08/2024 7:34 PM EST [facility] Blood Venous blood specimen / Unknown Venipuncture / Unknown 02/08/2024 6:05 PM EST 02/08/2024 6:28 PM EST Alton Chavez MD LAB BLOOD ORDERABLES Final Resul t [facility] [address] [place] [address] from Last 3 Months or Most Recently Relevant to Health Maintenance Insurance [employer] MED[employer]ARE Care Teams Cell Lead Relationship Specialty Start Date End Date Jc Maxwell MD PCP - General 06/04/22 Jorden Ayala, PharmD [address] [place] [phone] Pharmacist Pharmacy 10/30/23
[2025-03-27 10:16] LABS: PHA INR Fingerstick 3.2 (0.9-1.1)
== END 2025-03-27 10:18 ==
LOC: ACC 10:02
PROVIDERS: PCP Family Medicine; Visit Provider Nurse Practitioner
DX: Z79.01 Long term (current) use of anticoagulants (principal)
CPT/HCPCS: 85610; 99211; G0463